=== PATIENT | female | born 1965 | race Caucasian/White ===

== ENCOUNTER 2016-11-27 18:58 | Observation (INO) | payer OTHER ==
[~2016-11-27] VITALS: Ht 167.6 cm; Wt 86.0 kg
[~2016-11-27 18:58] MED LIST: AMT50 PO; INSUINJ4 SQ
[2016-11-27] MEDS ORDERED: ONDANSETRON INJ 2 MG/ML 2 ML VIAL IV STA (19:09)
[2016-11-27] MEDS ORDERED: HYDROmorphone INJ 1 MG/ML SYR IV STA ×2 (19:09→20:44)
[2016-11-27 19:26] LABS: BASO % 0.4 %; BASO ABS # 0.02 K/uL (0-0.2); COMPLETE YES; EOS % 4.3 %; HEMATOCRIT 39.1 % (37-47); IG% 0.2 %; LYMPH % 28.7 %; MEAN CELL VOLUME 86.9 fL (80-100); MEAN CORPUSCULAR HEMOGLOBIN 30.7 pg (25-34); MEAN CORPUSCULAR HGB CONC 35.3 g/dl (32-36); MEAN PLATELET VOLUME 10.5 fL (7.4-10.4); MONO % 3.7 %; NEUT % 62.7 %; PLATELET COUNT 250 K/uL (130-400); WHITE BLOOD COUNT 4.87 K/uL (4.8-10.8)
[2016-11-27 19:35] LABS: ISTAT CREATININE 0.6 mg/dl (0.6-1.3); ISTAT HEMOGLOBIN 13.3 g/dl (12.0-16.0); ISTAT IONIZED CALCIUM 1.15 mmol/l (1.12-1.32)
[2016-11-27 19:37] LABS: INR 0.9 (0.9-1.1); PARTIAL THROMBOPLASTIN RATIO 0.9
[2016-11-27 19:51] LABS: BUN/CREATININE RATIO 12.6 (10-20); CALCIUM 8.5 mg/dl (8.5-10.1); CREATININE 0.91 mg/dl (0.60-1.20); POTASSIUM 4.1 mmol/L (3.5-5.1)
[2016-11-27 20:06] LABS: BETA-HYDROXYBUTYRATE 1.52 mg/dL (0.2-2.81)
[2016-11-27] MEDS ORDERED: OPTIRAY 320 IV PRN (20:15)
--- NOTE | 2016-11-27 20:20 | DIAGNOSTIC IMAGING REPORT ---
HEAD CT NONCONTRAST CT DOSE: HISTORY: head injury eval for bleed TECHNIQUE: Multiaxial CT images of the head were performed without the use of intravenous contrast. Automated exposure control was utilized for this study. Comparison: Head CT 06/10/2016. Findings: The paranasal sinuses and mastoid air cells are clear. The calvarium and skull base are intact. The ventricles and sulci are within normal limits. There is no mass, hematoma, midline shift, or acute infarct. Impression: No acute intracranial abnormality. Electronically signed by: Andry Reynolds M.D. 11/27/2016 8:19 PM Dictated Date/Time: 11/27/2016 8:14 PM
--- NOTE | 2016-11-27 20:28 | DIAGNOSTIC IMAGING REPORT ---
THORACIC AND LUMBAR SPINE CT CT DOSE: HISTORY: Back pain. Fall. TECHNIQUE: Multiaxial CT images of the thoracic and lumbar spine were performed and reformatted in the sagittal and coronal plane without the use of contrast. COMPARISON: Lumbar spine MRI 11/21/2010. FINDINGS: No fractures. Paraspinal soft tissues are unremarkable. Severe disc space narrowing at T7-T8. Small bone island at T5. Small calcified central disc protrusion at T7-T8. Posterior decompression fusion from L4 3 through L5 with pedicle screws and rods. The hardware appears intact. There is 3 mm of anterolisthesis of L4 on L5. IMPRESSION: No fractures within the thoracic or lumbar spine. Electronically signed by: Andry Reynolds M.D. 11/27/2016 8:27 PM Dictated Date/Time: 11/27/2016 8:19 PM
[2016-11-27] MEDS ORDERED: NovoLIN-R INSULIN PER UNIT CHARGE IV STA (20:30)
[2016-11-27] MEDS ORDERED: SODIUM CHLORIDE 0.9% 1000ML 1,000 ML IV STA (20:30)
--- NOTE | 2016-11-27 20:52 | DIAGNOSTIC IMAGING REPORT ---
CHEST ABDOMEN AND PELVIS CTA for AORTIC DISSECTION CT DOSE: 1996.05 mGy.cm HISTORY: Tearing chest pain and abdominal pain. TECHNIQUE: Multiaxial CT images of the chest abdomen and pelvis were performed both before and after the intravenous administration of contrast to evaluate the aorta. Maximal intensity projection images were also obtained. COMPARISON STUDY: Chest CTA 11/03/2009. Abdomen and pelvis CT 02/28/2010. FINDINGS: Normal caliber aorta with no evidence for dissection. Moderate calcified plaque within the abdominal aorta. The central pulmonary arteries are patent. The heart is normal in size. The thyroid gland is mildly enlarged. No mediastinal or hilar lymphadenopathy. No acute fractures. No pneumothorax. The lungs are essentially clear. The liver, spleen, gallbladder, left adrenal gland, and kidneys are unremarkable. A 1.2 cm right adrenal gland nodule has slightly increased in size. The bladder, uterus, and ovaries are within normal limits. No bowel wall thickening or obstruction. Normal appendix. L3-L5 posterior decompression and fusion. There are suggestion of pancreas divisum. IMPRESSION: 1. No evidence for an aortic dissection. 2. Additional findings as above. Electronically signed by: Andry Reynolds M.D. 11/27/2016 8:51 PM Dictated Date/Time: 11/27/2016 8:35 PM
--- NOTE | 2016-11-27 20:54 | DIAGNOSTIC IMAGING REPORT ---
LEFT KNEE 2 VIEWS HISTORY: left knee injury eval for fx COMPARISON: None. FINDINGS: There is no fracture or dislocation. Mild anterior and lateral soft tissue swelling. No radiopaque foreign bodies. No knee effusion. IMPRESSION: No fractures. Electronically signed by: Andry Reynolds M.D. 11/27/2016 8:53 PM Dictated Date/Time: 11/27/2016 8:51 PM
[2016-11-27] MEDS ORDERED: INSULIN GLARGINE SOLOSTAR 100 UNITS/ML 3 ML PEN SC STA (21:19)
--- NOTE | 2016-11-27 21:22 | EMERGENCY ROOM VISIT NOTE ---
History Report prepared by Milana: Lori Griffiths Under the Supervision of: Dr. Contreras Dee M.D. First contact with patient: 19:01 Chief Complaint: BACK PAIN Stated Complaint: BACK PAIN W/ SOB History of Present Illness The patient is a 51 year old female who presents to the Emergency Room with complaints of constant back pain beginning [employer]. The patient was bending over to get a cake out of the refrigerator. When she lifted it up she felt a pop in her thoracic spine. She immediately had pain in her back that wraps around to her chest. She describes her pain as "squeezing." The patient hit her head and her left knee on the fridge. She denies any LOC, but is currently complaining of a severe headache with associated photophobia. She states her headache feels like a migraine. All of her pain is worsened with movement. The patient has a long history of lumbar back pain. She has never had any issues with her thoracic spine before. She does state that recently whenever she bends over she gets pain in her back rating around her chest. The patient denies fevers, incontinence, recent illness, and any family history of an aortic dissection. She has a history of MS and states that she typically has numbness and weakness on her left side due to her MS. She denies any new numbness or weakness. The patient was brought to the ED by ambulance. Source of History: patient Onset: [employer] Position: back (upper) Symptom Intensity: severe Quality: other (squeezing) Timing: constant Modifying Factors (Worsening): movement Associated Symptoms: + headache, + chest pain, No LOC, No fevers Note: Pt notes left knee pain. Review of Systems See HPI for pertinent positives & negatives. A total of 10 systems reviewed and were otherwise negative. Past Medical & Surgical Medical Problems: (1) Agitated depression (2) Benign hypertension (3) Chronic back pain (4) Chronic low back pain (5) Diabetes (6) Diabetes mellitus type 2 (7) Diabetic neuropathy (8) Drug overdose - suicide (9) Dyslipidemia (10) Essential hypertension (11) Major depressive disorder (12) Multiple sclerosis (13) Non-toxic uninodular goiter (14) s/p arthroscopic surgery knee (15) s/p back surgery (16) Syncope (17) Vertigo (18) Weakness of limb Family History Diabetes mellitus Hypertension Social History Smoking Status: Never Smoker Alcohol Use: none Drug Use: none Marital Status: Housing Status: lives with family Occupation Status: disabled Current/Historical Medications Scheduled Amitriptyline Hcl (Elavil), 60 MG PO HS Gabapentin (Neurontin), 900 MG PO TID Insulin Glargine (Lantus Solostar Pen), 25 UNITS SQ BID Lisinopril (Lisinopril), 40 MG PO DAILY Scheduled PRN Lorazepam (Ativan), 1 MG PO Q6H PRN for ANXIETY Tramadol (Ultram), 1 TAB PO TID PRN for prn Allergies Coded Allergies: Cephalexin (Verified Allergy, Intermediate, HIVES; NO SOB OR ANAPHYLACTIC SYMPTOMS, 11/27/16) Nabumetone (Verified Allergy, Mild, HIVES, 11/27/16) Bupropion (Verified Allergy, Unknown, RASH FINGERS TINGLY AND NUMB, ) Prednisone (Verified Allergy, Unknown, elevated BP RASH GI SHUT DOWN, ) turns into syco women, crying, hearing things NSAIDs (Verified Adverse Reaction, Mild, GI UPSET,STOMACH CRAMPS,RASH, ELEVATED BP, 11/27/16) CAN TAKE ADVIL SOMETIMES Physical Exam Vital Signs Date Time Temp Pulse Resp B/P (MAP) Pulse Ox O2 Delivery O2 Flow Rate FiO2 11/27/16 20:53 69 18 150/81 100 Room Air 11/27/16 20:21 67 17 156/93 100 Room Air 11/27/16 19:21 83 11/27/16 19:15 96 Room Air 11/27/16 18:58 36.4 84 17 155/78 96 Room Air Physical Exam Constitutional: Vital signs reviewed. Eyes: Pupils are equal round reactive to light. Conjunctiva are noninjected. ENT: Pharynx is clear without erythema or exudate. Mucous membranes are moist. Neck supple without meningeal signs. Respiratory: Clear to auscultation bilaterally. Breath sounds are equal bilaterally. Cardiovascular: Regular rate and rhythm. No rubs or gallops. Symmetric pulses in the extremities. GI: Soft, nondistended and nontender. Bowel sounds are present. No pulsatile masses. Musculoskeletal: No peripheral edema. Diffuse tenderness to the left knee without ecchymosis. Integumentary: No cyanosis. Neurological: The patient is awake and alert. No cranial nerves II-12 are intact. Motor and sensation are intact in the right upper and lower extremities. Dysesthesia to the left arm and leg with 4/5 strength in both extremities. Psychiatric: Normal affect. Medical Decision & Procedures ER Provider Diagnostic Interpretation: Radiology results as stated below per my review and the radiologist's interpretation: THORACIC AND LUMBAR SPINE CT CT DOSE: HISTORY: Back pain. Fall. TECHNIQUE: Multiaxial CT images of the thoracic and lumbar spine were performed and reformatted in the sagittal and coronal plane without the use of contrast. COMPARISON: Lumbar spine MRI 11/21/2010. FINDINGS: No fractures. Paraspinal soft tissues are unremarkable. Severe disc space narrowing at T7-T8. Small bone island at T5. Small calcified central disc protrusion at T7-T8. Posterior decompression fusion from L4 3 through L5 with pedicle screws and rods. The hardware appears intact. There is 3 mm of anterolisthesis of L4 on L5. IMPRESSION: No fractures within the thoracic or lumbar spine. Electronically signed by: Andry Reynolds M.D. 11/27/2016 8:27 PM Dictated Date/Time: 11/27/2016 8:19 PM THORACIC AND LUMBAR SPINE CT CT DOSE: HISTORY: Back pain. Fall. TECHNIQUE: Multiaxial CT images of the thoracic and lumbar spine were performed and reformatted in the sagittal and coronal plane without the use of contrast. COMPARISON: Lumbar spine MRI 11/21/2010. FINDINGS: No fractures. Paraspinal soft tissues are unremarkable. Severe disc space narrowing at T7-T8. Small bone island at T5. Small calcified central disc protrusion at T7-T8. Posterior decompression fusion from L4 3 through L5 with pedicle screws and rods. The hardware appears intact. There is 3 mm of anterolisthesis of L4 on L5. IMPRESSION: No fractures within the thoracic or lumbar spine. Electronically signed by: Andry Reynolds M.D. 11/27/2016 8:27 PM Dictated Date/Time: 11/27/2016 8:[address]AST CT DOSE: HISTORY: head injury eval for bleed TECHNIQUE: Multiaxial CT images of the head were performed without the use of intravenous contrast. Automated exposure control was utilized for this study. Comparison: Head CT 06/10/2016. Findings: The paranasal sinuses and mastoid air cells are clear. The calvarium and skull base are intact. The ventricles and sulci are within normal limits. There is no mass, hematoma, midline shift, or acute infarct. Impression: No acute intracranial abnormality. Electronically signed by: Andry Reynolds M.D. 11/27/2016 8:19 PM Dictated Date/Time: 11/27/2016 8:14 PM CHEST ABDOMEN AND PELVIS CTA for AORTIC DISSECTION CT DOSE: 1996.05 mGy.cm HISTORY: Tearing chest pain and abdominal pain. TECHNIQUE: Multiaxial CT images of the chest abdomen and pelvis were performed both before and after the intravenous administration of contrast to evaluate the aorta. Maximal intensity projection images were also obtained. COMPARISON STUDY: Chest CTA 11/03/2009. Abdomen and pelvis CT 02/28/2010. FINDINGS: Normal caliber aorta with no evidence for dissection. Moderate calcified plaque within the abdominal aorta. The central pulmonary arteries are patent. The heart is normal in size. The thyroid gland is mildly enlarged. No mediastinal or hilar lymphadenopathy. No acute fractures. No pneumothorax. The lungs are essentially clear. The liver, spleen, gallbladder, left adrenal gland, and kidneys are unremarkable. A 1.2 cm right adrenal gland nodule has slightly increased in size. The bladder, uterus, and ovaries are within normal limits. No bowel wall thickening or obstruction. Normal appendix. L3-L5 posterior decompression and fusion. There are suggestion of pancreas divisum. IMPRESSION: 1. No evidence for an aortic dissection. 2. Additional findings as above. Electronically signed by: Andry Reynolds M.D. 11/27/2016 8:51 PM Dictated Date/Time: 11/27/2016 8:35 PM LEFT KNEE 2 VIEWS HISTORY: left knee injury eval for fx COMPARISON: None. FINDINGS: There is no fracture or dislocation. Mild anterior and lateral soft tissue swelling. No radiopaque foreign bodies. No knee effusion. IMPRESSION: No fractures. Electronically signed by: Andry Reynolds M.D. 11/27/2016 8:53 PM Dictated Date/Time: 11/27/2016 8:51 PM Laboratory Results 11/27/16 19:15 Red Blood Count 4.50, Mean Corpuscular Volume 86.9, Mean Corpuscular Hemoglobin 30.7, Mean Corpuscular Hemoglobin Concent 35.3, Mean Platelet Volume 10.5, Neutrophils (%) (Auto) 62.7, Lymphocytes (%) (Auto) 28.7, Monocytes (%) (Auto) 3.7, Eosinophils (%) (Auto) 4.3, Basophils (%) (Auto) 0.4, Neutrophils # (Auto) 3.05, Lymphocytes # (Auto) 1.40, Monocytes # (Auto) 0.18, Eosinophils # (Auto) 0.21, Basophils # (Auto) 0.02 11/27/16 19:15 Test 11/27/16 19:15 11/27/16 19:24 11/27/16 19:37 White Blood Count 4.87 K/uL (4.8-10.8) Red Blood Count 4.50 M/uL (4.2-5.4) Hemoglobin 13.8 g/dL (12.0-16.0) Hematocrit 39.1 % (37-47) Mean Corpuscular Volume 86.9 fL (80-100) Mean Corpuscular Hemoglobin 30.7 pg (25-34) Mean Corpuscular Hemoglobin Concent 35.3 g/dl (32-36) Platelet Count 250 K/uL (130-400) Mean Platelet Volume 10.5 fL (7.4-10.4) Neutrophils (%) (Auto) 62.7 % Lymphocytes (%) (Auto) 28.7 % Monocytes (%) (Auto) 3.7 % Eosinophils (%) (Auto) 4.3 % Basophils (%) (Auto) 0.4 % Neutrophils # (Auto) 3.05 K/uL (1.4-6.5) Lymphocytes # (Auto) 1.40 K/uL (1.2-3.4) Monocytes # (Auto) 0.18 K/uL (0.11-0.59) Eosinophils # (Auto) 0.21 K/uL (0-0.5) Basophils # (Auto) 0.02 K/uL (0-0.2) RDW Standard Deviation 40.8 fL (36.4-46.3) RDW Coefficient of Variation 12.7 % (11.5-14.5) Immature Granulocyte % (Auto) 0.2 % Immature Granulocyte # (Auto) 0.01 K/uL (0.00-0.02) Prothrombin Time 10.0 SECONDS (9.0-12.0) Prothromb Time International Ratio 0.9 (0.9-1.1) Activated Partial Thromboplast Time 23.6 SECONDS (21.0-31.0) Partial Thromboplastin Ratio 0.9 Est Creatinine Clear Calc Drug Dose 79.0 ml/min Estimated GFR () 83.5 Estimated GFR (Non- 72.0 BUN/Creatinine Ratio 12.6 (10-20) Calcium Level 8.5 mg/dl (8.5-10.1) Beta-Hydroxybutyric Acid 1.52 mg/dL (0.2-2.81) Bedside Hemoglobin 13.3 g/dl (12.0-16.0) Bedside Hematocrit 39 % (37-47) Bedside Sodium 136 mEq/L (135-144) Bedside Potassium 4.1 mEq/L (3.3-5.0) Bedside Chloride 99 mEq/L (101-112) Bedside Total CO2 24 mEq/l (24-31) Anion Gap 18.0 mmol/L (16-25) Bedside Blood Urea Nitrogen 11 mg/dl (7-18) Bedside Creatinine 0.6 mg/dl (0.6-1.3) Bedside Glucose (other) 403 mg/dl (70-99) Bedside Ionized Calcium ([place]) 1.15 mmol/l (1.12-1.32) Bedside Troponin I < 0.030 ng/ml (0-0.045) Medications Administered Medications (Trade) Dose Ordered Sig/Harrison Route Start Time Stop Time Status Last Admin Dose Admin Hydromorphone HCl (Dilaudid Inj) 1 mg NOW STAT IV 11/27/16 19:09 11/27/16 19:13 DC 11/27/16 19:44 1 MG Ondansetron HCl (Zofran Inj) 4 mg NOW STAT IV 11/27/16 19:09 11/27/16 19:13 DC 11/27/16 19:43 4 MG Sodium Chloride 1,000 ml @ 999 mls/hr Q1H1M STAT IV 11/27/16 20:30 11/27/16 21:30 11/27/16 20:43 999 MLS/HR Insulin Human Regular (novoLIN-R U-100 PER UNIT) 7 units NOW STAT IV 11/27/16 20:30 11/27/16 20:32 DC 11/27/16 20:45 7 UNITS Hydromorphone HCl (Dilaudid Inj) 0.5 mg NOW STAT IV 11/27/16 20:44 11/27/16 20:46 DC 11/27/16 20:52 0.5 MG ECG Indication: chest pain Rate (beats per minute): 80 Rhythm: normal sinus Findings: Q waves (lead 3), no acute ischemic change, no ectopy ED Course 1900: The patient was evaluated in room C6. A complete history and physical exam was performed. 1908: Zofran 4 mg IV, Dilaudid 1 mg IV 2029: Insulin Human Regular 7 units IV, NSS 1000 ml @ 999 mls/hr IV 2038: I reassessed the patient and she is still having chest pain and headache, although her chest pain has improved significantly. 2043: Dilaudid 0.5 mg IV 2057: I reassessed the patient at this time. She is still having some pain. I discussed the results and treatment plan with the patient. I answered all pertaining questions that she had. She expressed understanding and verbalized agreement. 2103: I spoke with Dr. Zaragoza. We discussed the patient's results and treatment plan. The patient will be evaluated by the [facility] for further management. Medical Decision This is a 51-year-old female who presents with chest pain, back pain and headache. Differential diagnosis includes aortic dissection, aortic aneurysm, thoracic intervertebral disc disease, acute coronary syndrome, pulmonary embolism. I did perform a limited focused review of portions of the patient's old chart on the electronic medical record. The patient has been here frequently for migraine headaches. Medication Reconciliation: I attest that I have personally reviewed the patient' s current medication list. Blood Pressure Screening: Patient was found to have an elevated blood pressure and was referred to their primary doctor for recheck and further treatment. I did evaluate the patient as noted above. IV access was established. The patient was placed on a continuous twist packer. I did order and personally review the patient's 12-lead EKG as described above. I did order and review the patient's blood work as noted in the electronic medical record. I did order a CT of the head, thoracic and lumbar spine, chest, abdomen and pelvis. I did review the images myself as well as the radiology report as described above. She does not have any evidence of aortic dissection. There is no intracranial hemorrhage. No fractures in her spine. She does have lumbar disc disease and T7 and T8. This may account for her chest pain. She was treated with Dilaudid and Zofran IV. She had persistent pain and was given Dilaudid 0.5 mg IV. I did reassess the patient. Her chest pain is significantly improved but she still has a persistent migraine. While her chest pain seems likely secondary to her intervertebral disc disease, I cannot completely rule out a cardiac cause. She does have a number of cardiac risk factors including strong family history, hypertension and diabetes. Her blood sugar is significantly elevated here. I did treat her with IV fluids and IV insulin. I did get an x-ray of her left knee which showed no acute fracture. After discussion with the patient she will be hospitalized for further care and management. I did discuss case with the [facility] case packer. [place] Drug Monitoring Program Search Results: patient reviewed within database, no issues identified Consults Time Called: 2100 Consulting Physician: Dr. Zaragoza Returned Call: [address] Zaragoza. We discussed the patient's results and treatment plan. The patient will be evaluated by the [facility] for further management. Impression Primary Impression: Left sided chest pain Additional Impressions: Intervertebral disc disease Intractable headache Intractable back pain Hyperglycemia Left knee injury Scribe Attestation The scribe's documentation has been prepared under my direct and personally reviewed by me in its entirety. I confirm that the note above accurately reflects all work, treatment, procedures, and medical decision making performed by me. Departure Information Dispostion Being Evaluated By Hospitalist Referrals Madi Jaimes D.O. (PCP) Patient Instructions My [facility] Problem Qualifiers Additional Impressions: Intractable headache Headache type: unspecified Headache chronicity pattern: unspecified pattern Qualified Codes: R51 - Headache Left knee injury Encounter type: initial encounter Qualified Codes: S89.92XA - Unspecified injury of left lower leg, initial encounter
[2016-11-27 21:28] LABS: ALKALINE PHOSPHATASE 150 U/L (45-117); ALT/SGPT 28 U/L (12-78); AST/SGOT 12 U/L (15-37)
[2016-11-27] MEDS ORDERED: GLUCOSE 40% GEL 15 GM TUBE PO PRN (22:00)
[2016-11-27] MEDS ORDERED: ACETAMINOPHEN 325 MG TAB PO PRN (22:00)
[2016-11-27] MEDS ORDERED: SUMATRIPTAN SUCCINATE 50 MG TAB PO PRN (22:00)
[2016-11-27] MEDS ORDERED: DEXTROSE 50% 50 ML SYR IV PRN (22:00)
[2016-11-27] MEDS ORDERED: GLUCAGON FOR INJ 1 MG VIAL SQ PRN (22:00)
[2016-11-27] MEDS ORDERED: ONDANSETRON INJ 2 MG/ML 2 ML VIAL IV PRN (22:00)
[2016-11-27] MEDS ORDERED: GLUCOSE 10 TABS/TUBE PO PRN (22:00)
[2016-11-27] MEDS ORDERED: PROMETHAZINE HCL INJ 12.5 MG in SODIUM CHLORIDE 0.9% 50ML 50 ML IV PRN (22:00)
[2016-11-27] MEDS ORDERED: LIDODERM (LIDOCAINE) PATCH 5% TD STA (22:01)
[2016-11-27] MEDS ORDERED: SUMATRIPTAN SUCCINATE 50 MG TAB PO STA (22:02)
[2016-11-27] MEDS ORDERED: GABAPENTIN 300 MG CAP PO STA (22:02)
[2016-11-27] MEDS ORDERED: INSULIN ASPART 100 UNITS/ML 3 ML PEN SC STA (22:03)
[2016-11-27] MEDS ORDERED: LORAZEPAM 1 MG TAB PO STA (22:04)
[2016-11-27 22:23] VITALS: BMI 30.6
[2016-11-27] MEDS ORDERED: IV FLUIDS COMPLETED PRN (22:45)
[2016-11-28] MEDS ORDERED: GADAVIST IV PRN (00:30)
--- NOTE | 2016-11-28 00:41 | HISTORY & PHYSICAL EXAMINATION ---
DATE OF ADMISSION: 11/27/2016 PCP : Dr. Jaimes CHIEF COMPLAINT: Back pain going to chest, L knee pain and headache. HISTORY OF PRESENT ILLNESS: History obtained from patient and records. Medical history is significant for chronic pain, migraine, mood and anxiety disorder, past tobacco abuse, HTN, DM2 insulin requiring, multiple sclerosis, history of narcotic abuse as per records. Recent confinement in hospital last April 2014 for acute on chronic headache likely myofascial pain syndrome. For the last 2 to 3 months patient has noted midback pain going to her chest and abdomen worsened w bending. PCP's attributed sx to musculoskeletal pain on last visit last month. Outpatient T spine Xrays contemplated. Hours ago, the patient was reaching for a cake in her refrigerator when she felt a pop on her midback, going under her lower ribs. pleuritic with some shortness of breath. No worsening or weakness in the lower extremities. Px subsequently hit her head on the refrigerator w/c caused her to fall down on her left knee. Px subsequently noted migraine attack w/ photophobia and worsening achy left knee pain. No LOC. Intractable pain at the Emergency Room. BSG 400s. Px given IV insulin in the ER. MEDICAL HISTORY: As above. SURGERIES: She has had back surgery in 2015 at [facility] and knee surgery. HOME MEDICATIONS: Include; Elavil, Neurontin, Lantus, Ativan, lisinopril and Ultram. ALLERGIES: TO CEPHALEXIN, PREDNISONE, BUPROPION, NSAIDS. FAMILY HISTORY: Heart disease. PERSONAL AND SOCIAL HISTORY: Past tobacco abuse. No chronic intake of alcoholic beverages. Disabled. REVIEW OF SYSTEMS: As per HPI, all other ROS negative. PHYSICAL EXAMINATION: VITAL SIGNS: Blood pressure was noted to be 150/80 pulse rate 60, RR 15 T 36.5 O2 sats 96 on room air. GENERAL: Noted to be uncomfortable, obese, in no respiratory distress, lying down on the stretcher with a towel over her face. SKIN: Normal color. HEENT: Wearing sunglasses. [place] palpebral conjunctivae. Dry mucosa. NECK: Short neck. LUNGS: Decreased breath sounds. subcostal tenderness BACK : Tenderness on the mid back ABDOMEN: Some distention. EXTREMITIES: L knee swellling and tenderness. NEUROLOGIC: No gross focality. gait and stance not assessed LABORATORIES: Hemoglobin was noted to be 13.8, hematocrit 39.1 white cell count 5.8 and platelets 250. Sodium 138, potassium 4.1, creatinine 1 glucose 380. Troponin is 0.03. CT head : no acute pathology. CT thoracic spine; no fractures of thoracic and lumbar spine. severe disc narrowing T7-T8 w/ small calcified disk protrusion. decompression L4 , L3 and L5 CTA; no dissection. Knee x-ray on the left : no fracture. no joint effusion, anterolat soft tissue swelling EKG as per my interpretation : rate of 80, normal sinus rhythm, inc RBBB, T-wave flattening in inferior leads, PRWP ASSESSMENT: 1. Acute on chronic midback pain now w subcostal radiation worsening of chronic thoracic radiculopathy sx after bending episode tonight 2. hx lumbar spine surgery ([facility]) 3. hx MS as per records, sx at baseline as per px 4. hypertension, slightly elevated 5. post-traumatic L knee pain 6. migraine flare up sp head trauma 7. DM2, insulin requiring suboptimal control as of recent HgA1c of 9.2 last May 2016 8. past tobacco abuse 9. narcotic abuse as per records PLAN: Observation. GMF analgesia. Judicious narcotic use. Lidoderm patch trial for midback pain MRI thoracic spine, Orthopedics consult RE radicular midback pain Imitrex trial for migraine. PT/OT eval. Basal insulin, ISS BG goal 140-180. Carb count coverage indicated for suboptimal blood sugar control. Patient due for HgA1c re-check. May benefit from diabetic education pending new results. DVT prophylaxis, Lovenox subQ. Full code. MTDD
[2016-11-28] MEDS ORDERED: SODIUM CHLORIDE 0.9% 1000ML 1,000 ML IV ONE (00:45)
[2016-11-28] MEDS: MoRPHine SULFATE 2 MG/ML CARP IV PRN ×2 (00:47→09:34)
[2016-11-28 06:00] LABS: HEMATOCRIT 39.2 % (37-47); MEAN CELL VOLUME 87.7 fL (80-100); MEAN CORPUSCULAR HEMOGLOBIN 29.8 pg (25-34); MEAN CORPUSCULAR HGB CONC 33.9 g/dl (32-36); MEAN PLATELET VOLUME 10.5 fL (7.4-10.4); PLATELET COUNT 243 K/uL (130-400); RED BLOOD COUNT 4.47 M/uL (4.2-5.4); WHITE BLOOD COUNT 5.95 K/uL (4.8-10.8)
[2016-11-28 06:34] LABS: ALB/GLOB RATIO 1.2 (0.9-2); BUN/CREATININE RATIO 13.2 (10-20); CALCIUM 8.7 mg/dl (8.5-10.1); CREATININE 0.72 mg/dl (0.60-1.20); POTASSIUM 3.3 mmol/L (3.5-5.1)
--- NOTE | 2016-11-28 06:40 | DIAGNOSTIC IMAGING REPORT ---
THORACIC SPINE MRI WITH AND WITHOUT CONTRAST HISTORY: Pain mid back pain , hx traum, hx ms TECHNIQUE: Multiplanar multisequence MRI of the thoracic spine was performed both before and after the intravenous administration of contrast. COMPARISON: None. FINDINGS: Alignment and curvature are intact. No fracture or subluxation. No significant central canal or neural foraminal narrowing. Signal characteristics are unremarkable. Moderate degenerative disc change throughout. IMPRESSION: Moderate degenerative disc change. No acute bony abnormality. No abnormal postcontrast enhancement. Electronically signed by: Mark Gonsalves M.D. 11/28/2016 6:39 AM Dictated Date/Time: 11/28/2016 6:36 AM
[2016-11-28 06:51] LABS: BASO % 0.3 %; BASO ABS # 0.02 K/uL (0-0.2); COMPLETE YES; IG% 0.2 %; LYMPH ABS # 2.08 K/uL (1.2-3.4); MONO % 5.4 %; NEUT % 55.1 %
[2016-11-28 07:20] VITALS: BP 145/84; PULSE 81; TEMP 36.6; O2SAT 96
[2016-11-28] MEDS: TRAMADOL HCL 50 MG TAB PO PRN ×4 (07:59→23:54)
[2016-11-28 08:18] LABS: ESTIMATED AVERAGE GLUCOSE 326 mg/dl; HA1C FLAG Normal (Normal)
[2016-11-28] MEDS: LIDODERM (LIDOCAINE) PATCH 5% TD SCH ×2 (09:00→09:29)
[2016-11-28] MEDS ORDERED: INSULIN GLARGINE SOLOSTAR 100 UNITS/ML 3 ML PEN SQ SCH (09:00)
[2016-11-28] MEDS: GABAPENTIN 300 MG CAP PO SCH ×3 (09:28→20:37)
[2016-11-28] MEDS: ENOXAPARIN 40 MG/0.4 ML SYR SQ SCH (09:28)
[2016-11-28] MEDS: LISINOPRIL 40 MG TAB PO SCH (09:28)
[2016-11-28] MEDS: INSULIN ASPART 100 UNITS/ML 3 ML PEN SC SCH ×4 (09:32→20:39)
[2016-11-28] MEDS: INSULIN GLARGINE SOLOSTAR 100 UNITS/ML 3 ML PEN SQ SCH ×2 (09:33→20:42)
[2016-11-28 09:37] VITALS: BP 133/78
[2016-11-28 13:07] VITALS: Ht 167.6 cm; Wt 86.0 kg
--- NOTE | 2016-11-28 13:57 | CONSULTATION REPORT ---
DATE OF CONSULTATION: 11/28/2016 HISTORY OF PRESENT ILLNESS: This is a very pleasant 51-year-old female who presented to the Emergency Room yesterday evening. She was in the refrigerator and leaning forward to get a Father's day cake out when she had an acute onset of thoracic pain radiating into her lower ribs bilaterally. She hit her left knee. She also reports to hit her head. We were asked to evaluate her in regards to her thoracic spine. She reports she has had this thoracic pain for the past several months. It waxes and wanes. Bending seems to exacerbate it. It does radiate to the anterior ribcage bilaterally just underneath her breasts. Upon examining her today it is improved. She has no radicular leg pain. No radicular upper extremity symptoms. She still has a migraine today, she does have a history of this as well. Denies bowel or bladder changes. She has had no treatment for this in the past. PAST MEDICAL HISTORY: Significant for depression, hypertension, diabetes, diabetic neuropathy, hyperlipidemia, hypertension, MS, goiter, syncope and vertigo. PAST SURGICAL HISTORY: Significant for knee arthroscopy and back surgery. SOCIAL HISTORY: She denies alcohol and tobacco use. She is , disability. MEDICATIONS: At home include Elavil, Neurontin, Lantus insulin, lisinopril, Ativan, tramadol. ALLERGIES: INCLUDE CEPHALEXIN, NABUMETONE, BUPROPION, PREDNISONE AND ANTI-INFLAMMATORIES. REVIEW OF SYSTEMS: Significant for thoracic pain, rib pain, left knee pain and a headache. PHYSICAL EXAMINATION: GENERAL: She is in a bed #352 bed #2. She has a Washcloth over her head. NEUROLOGIC: She is alert and oriented x3. Exam is limited to the musculoskeletal system. Her lower extremity is neurovascularly intact. Strength is intact bilaterally. No abrasions over the thoracolumbar spine. IMAGING DATA: I have a thoracic MRI dated 11/27/2016. This shows degenerative changes. There is no significant stenosis. There is no large disk herniations noted. No acute fractures noted. Also thoracic spine by CT dated 11/28/1999. Again, it shows significant disk space narrowing at T7-T8. Prior fusion L4-L5. ASSESSMENT: Acute on chronic thoracic pain. PLAN: At this point in time, she is greatly improved. Treatment at this point in time is at PT, pain control. I have discussed the merits of massage therapy upon discharge. There is no surgical intervention at this point in time recommended. If pain is uncontrolled still may consider pain management consult. Thank you for this consultation. MARK
[2016-11-28 15:05] VITALS: BP 138/80; PULSE 81; TEMP 36.8; O2SAT 96
[2016-11-28] MEDS: LORAZEPAM 1 MG TAB PO PRN (16:21)
[2016-11-28] MEDS ORDERED: ONDANSETRON INJ 2 MG/ML 2 ML VIAL IV ONE (17:00)
[2016-11-28] MEDS ORDERED: HYDROmorphone INJ 1 MG/ML SYR IV ONE (17:00)
[2016-11-28] MEDS ORDERED: AMITRIPTYLINE HCL 10 MG TAB PO SCH (21:00)
[2016-11-28 22:44] VITALS: BP 125/83; PULSE 88; TEMP 36.5; O2SAT 96
--- NOTE | 2016-11-29 01:00 | Progress Note ---
Medicine Progress Note Date & Time of Visit: Nov 28, 2016 at 16:50 . Subjective Back pain somewhat better. Experiencing severe migraine with nausea. No CP. No cough or SOB. No emesis or diarrhea. . Objective Last 8 Hrs Date Time Temp Pulse Resp B/P (MAP) Pulse Ox O2 Delivery O2 Flow Rate FiO2 11/28/16 16:30 Room Air 11/28/16 15:05 36.8 81 18 138/80 (99) 96 Room Air Physical Exam: General- appears to be uncomfortable Lungs- clear Heart- RRR Abdomen- + BS, soft, nontender Extremities- no pretibial edema or calf tenderness Neuro- alert . Laboratory Results: Last 24 Hours Test 11/28/16 05:30 11/28/16 08:16 11/28/16 12:05 11/28/16 17:02 White Blood Count 5.95 K/uL Red Blood Count 4.47 M/uL Hemoglobin 13.3 g/dL Hematocrit 39.2 % Mean Corpuscular Volume 87.7 fL Mean Corpuscular Hemoglobin 29.8 pg Mean Corpuscular Hemoglobin Concent 33.9 g/dl Platelet Count 243 K/uL Mean Platelet Volume 10.5 fL Neutrophils (%) (Auto) 55.1 % Lymphocytes (%) (Auto) 35.0 % Monocytes (%) (Auto) 5.4 % Eosinophils (%) (Auto) 4.0 % Basophils (%) (Auto) 0.3 % Neutrophils # (Auto) 3.28 K/uL Lymphocytes # (Auto) 2.08 K/uL Monocytes # (Auto) 0.32 K/uL Eosinophils # (Auto) 0.24 K/uL Basophils # (Auto) 0.02 K/uL RDW Standard Deviation 41.2 fL RDW Coefficient of Variation 12.8 % Immature Granulocyte % (Auto) 0.2 % Immature Granulocyte # (Auto) 0.01 K/uL Sodium Level 142 mmol/L Potassium Level 3.3 mmol/L Chloride Level 105 mmol/L Carbon Dioxide Level 28 mmol/L Anion Gap 9.0 mmol/L Blood Urea Nitrogen 10 mg/dl Creatinine 0.72 mg/dl Est Creatinine Clear Calc Drug Dose 99.8 ml/min Estimated GFR () 110.8 Estimated GFR (Non- 95.6 BUN/Creatinine Ratio 13.2 Random Glucose 169 mg/dl Calcium Level 8.7 mg/dl Total Bilirubin 0.4 mg/dl Aspartate Amino Transf (AST/SGOT) 11 U/L Alanine Aminotransferase (ALT/SGPT) 26 U/L Alkaline Phosphatase 131 U/L Total Protein 6.5 gm/dl Albumin 3.6 gm/dl Globulin 2.9 gm/dl Albumin/Globulin Ratio 1.2 Lipase 312 U/L Bedside Glucose 191 mg/dl 216 mg/dl 293 mg/dl Test 11/28/16 20:25 Bedside Glucose 177 mg/dl Assessment & Plan BACK PAIN MRI demonstrated degenerative changes. Seen by Ortho spine. Analgesics / PT recommended. MIGRAINE [place] Rx with hydromorphone + ondansetron. DM TYPE 2 Not well-controlled. Random glucose in ED 380. Hgb A1C = 13. Lantus + NovoLog per protocol. Will need ongoing outpatient eduction / support. VTE PROPHYLAXIS SQ enoxaparin. DISPOSITION Expected discharge to home. Family Medicine follow-up with Dr. Madi Jaimes. . Current Inpatient Medications: Current Inpatient Medications Medications (Trade) Dose Ordered Sig/Harrison Route Start Time Stop Time Status Last Admin Dose Admin Ioversol (Optiray 320) 116 ml UD PRN IV 11/27/16 20:15 12/01/16 20:14 Lidocaine (Lidoderm Patch 5%) 1 patch QAM TD 11/28/16 09:00 12/28/16 08:59 11/28/16 09:00 1 PATCH Miscellaneous (Remove Lidoderm Patch) 1 ea DAILY@21 N/A 11/28/16 21:00 12/28/16 20:59 11/28/16 20:36 1 EA Enoxaparin Sodium (Lovenox Inj) 40 mg Q24H SQ 11/28/16 09:00 12/28/16 08:59 11/28/16 09:28 40 MG Acetaminophen (Tylenol Tab) 650 mg Q4H PRN PO 11/27/16 22:00 12/27/16 21:59 11/28/16 05:28 650 MG Insulin Aspart (novoLOG ASPART) SLIDING SCALE If C... ACHS SC 11/28/16 07:00 12/28/16 06:59 11/28/16 18:05 8 UNITS Glucose (Glucose 40% Gel) 15-30 GRAMS 15 GRAMS... UD PRN PO 11/27/16 22:00 12/27/16 21:59 Glucose (Glucose Chew Tab) 4-8 Tablets 4 Tabl... UD PRN PO 11/27/16 22:00 12/27/16 21:59 Dextrose (Dextrose 50% 50ML Syringe) 25-50ML OF 50% DW IV FOR... UD PRN IV 11/27/16 22:00 12/27/16 21:59 Glucagon (Glucagon Inj) 1 mg UD PRN SQ 11/27/16 22:00 12/27/16 21:59 Amitriptyline HCl (Elavil Tab) 60 mg HS PO 11/28/16 21:00 12/28/16 20:59 11/28/16 20:38 60 MG Gabapentin (Neurontin Cap) 900 mg TID PO 11/28/16 09:00 12/28/16 08:59 11/28/16 20:37 900 MG Lisinopril (Zestril Tab) 40 mg DAILY PO 11/28/16 09:00 12/28/16 08:59 11/28/16 09:28 40 MG Lorazepam (Ativan Tab) 1 mg Q6H PRN PO 11/27/16 22:00 12/27/16 21:59 11/28/16 16:21 1 MG Tramadol HCl (Ultram Tab) 50 mg Q4H PRN PO 11/27/16 22:00 12/27/16 21:59 11/28/16 19:46 50 MG Sumatriptan Succinate (Imitrex Tab) 50 mg Q2H PRN PO 11/27/16 22:00 12/27/16 21:59 11/28/16 04:08 50 MG Ondansetron HCl (Zofran Inj) 4 mg Q6H PRN IV 11/27/16 22:00 12/27/16 21:59 Promethazine HCl 12.5 mg/Sodium Chloride 50.5 ml @ 204 mls/hr Q6H PRN IV 11/27/16 22:00 12/27/16 21:59 Morphine Sulfate (MoRPHine SULFATE INJ) 2 mg Q8H PRN IV 11/27/16 22:00 12/11/16 21:59 11/28/16 09:34 2 MG Miscellaneous (Iv Fluids Completed) 1 ea PRN PRN N/A 11/27/16 22:45 11/27/17 22:44 Gadobutrol (Gadavist) 8.5 mmol UD PRN IV 11/28/16 00:30 12/02/16 00:29 Insulin Glargine (Lantus Solostar Pen) 25 unit BID SQ 11/28/16 09:00 12/28/16 08:59 11/28/16 20:42 25 UNIT
[2016-11-29] MEDS: TRAMADOL HCL 50 MG TAB PO PRN (06:05)
[2016-11-29] MEDS: LORAZEPAM 1 MG TAB PO PRN ×2 (06:05→15:30)
[2016-11-29 06:48] LABS: CALCIUM 8.4 mg/dl (8.5-10.1); CREATININE 1.2 mg/dl (0.60-1.20)
[2016-11-29 07:59] VITALS: BP 120/82; PULSE 80; TEMP 36.4; O2SAT 97
[2016-11-29 08:05] VITALS: O2SAT 97
[2016-11-29] MEDS: ENOXAPARIN 40 MG/0.4 ML SYR SQ SCH (08:48)
[2016-11-29 08:49] VITALS: BP 95/59
[2016-11-29] MEDS: LISINOPRIL 40 MG TAB PO SCH (08:49)
[2016-11-29] MEDS: LIDODERM (LIDOCAINE) PATCH 5% TD SCH (08:50)
[2016-11-29] MEDS: GABAPENTIN 300 MG CAP PO SCH ×2 (08:50→13:44)
[2016-11-29] MEDS: INSULIN ASPART 100 UNITS/ML 3 ML PEN SC SCH ×3 (08:54→18:18)
[2016-11-29] MEDS: INSULIN GLARGINE SOLOSTAR 100 UNITS/ML 3 ML PEN SQ SCH (08:55)
[2016-11-29] MEDS ORDERED: HYDROmorphone INJ 1 MG/ML SYR IV ONE (10:00)
[2016-11-29] MEDS ORDERED: ONDANSETRON INJ 2 MG/ML 2 ML VIAL IV ONE (10:00)
[2016-11-29 10:09] VITALS: BP 114/74
[2016-11-29 15:16] VITALS: BP 128/84; PULSE 100; TEMP 36.8; O2SAT 97
[2016-11-29] MEDS ORDERED: BUTALBITAL/ACETAMIN/CAFFEINE TAB PO SCH (16:15)
--- NOTE | 2016-11-29 16:52 | Progress Note ---
Medicine Progress Note Date & Time of Visit: Nov 29, 2016 at 16:00 . Subjective Bad migraine this morning. Improved after receiving IV hydromorphone + ondansetron, but now recurring. Back pain improved. Would like to go home today. . Objective Last 8 Hrs Date Time Temp Pulse Resp B/P (MAP) Pulse Ox O2 Delivery O2 Flow Rate FiO2 11/29/16 15:16 36.8 100 16 128/84 (99) 97 Room Air 11/29/16 10:09 114/74 (87) 11/29/16 08:49 95/59 (71) Physical Exam: General- no acute distress Neck- supple Lungs- clear Heart- RRR Abdomen- + BS, soft, nontender Extremities- no pretibial edema or calf tenderness; left knee without significant effusion Neuro- alert . Laboratory Results: Last 24 Hours Test 11/28/16 17:02 11/28/16 20:25 11/29/16 05:30 11/29/16 07:58 Bedside Glucose 293 mg/dl 177 mg/dl 178 mg/dl Sodium Level 140 mmol/L Potassium Level 4.0 mmol/L Chloride Level 103 mmol/L Carbon Dioxide Level 27 mmol/L Anion Gap 10.0 mmol/L Blood Urea Nitrogen 18 mg/dl Creatinine 1.20 mg/dl Est Creatinine Clear Calc Drug Dose 59.9 ml/min Estimated GFR () 59.8 Estimated GFR (Non- 51.6 BUN/Creatinine Ratio 15.0 Random Glucose 205 mg/dl Calcium Level 8.4 mg/dl Test 11/29/16 11:56 Bedside Glucose 149 mg/dl Assessment & Plan BACK PAIN Developed severe back pain when reaching for something in refrigerator. MRI demonstrated degenerative changes. Seen by Ortho spine. Analgesics / PT recommended. Lidocaine patch seems to be helping- will give Rx. MIGRAINE [place] Rx'd with hydromorphone + ondansetron. Continue usual regimen at home. DM TYPE 2 Not well-controlled. Random glucose in ED 380. Hgb A1C = 13. Lantus + NovoLog per protocol. FBS today = 178. Will need ongoing outpatient eduction / support. VTE PROPHYLAXIS SQ enoxaparin. DISPOSITION Discharge to home. Family Medicine follow-up with Dr. Madi Jaimes. . Consultants: Ortho Spine . Procedures: CT head CT thoracic + lumbar spine CTA chest MRI thoracic spine PT OT . Current Inpatient Medications: Current Inpatient Medications Medications (Trade) Dose Ordered Sig/Harrison Route Start Time Stop Time Status Last Admin Dose Admin Ioversol (Optiray 320) 116 ml UD PRN IV 11/27/16 20:15 12/01/16 20:14 Lidocaine (Lidoderm Patch 5%) 1 patch QAM TD 11/28/16 09:00 12/28/16 08:59 11/29/16 08:50 1 PATCH Miscellaneous (Remove Lidoderm Patch) 1 ea DAILY@21 N/A 11/28/16 21:00 12/28/16 20:59 11/28/16 20:36 1 EA Enoxaparin Sodium (Lovenox Inj) 40 mg Q24H SQ 11/28/16 09:00 12/28/16 08:59 11/28/16 09:28 40 MG Acetaminophen (Tylenol Tab) 650 mg Q4H PRN PO 11/27/16 22:00 12/27/16 21:59 11/28/16 05:28 650 MG Insulin Aspart (novoLOG ASPART) SLIDING SCALE If C... ACHS SC 11/28/16 07:00 12/28/16 06:59 11/29/16 13:02 2 UNITS Glucose (Glucose 40% Gel) 15-30 GRAMS 15 GRAMS... UD PRN PO 11/27/16 22:00 12/27/16 21:59 Glucose (Glucose Chew Tab) 4-8 Tablets 4 Tabl... UD PRN PO 11/27/16 22:00 12/27/16 21:59 Dextrose (Dextrose 50% 50ML Syringe) 25-50ML OF 50% DW IV FOR... UD PRN IV 11/27/16 22:00 12/27/16 21:59 Glucagon (Glucagon Inj) 1 mg UD PRN SQ 11/27/16 22:00 12/27/16 21:59 Amitriptyline HCl (Elavil Tab) 60 mg HS PO 11/28/16 21:00 12/28/16 20:59 11/28/16 20:38 60 MG Gabapentin (Neurontin Cap) 900 mg TID PO 11/28/16 09:00 12/28/16 08:59 11/29/16 13:44 900 MG Lisinopril (Zestril Tab) 40 mg DAILY PO 11/28/16 09:00 12/28/16 08:59 11/28/16 09:28 40 MG Lorazepam (Ativan Tab) 1 mg Q6H PRN PO 11/27/16 22:00 12/27/16 21:59 11/29/16 15:30 1 MG Tramadol HCl (Ultram Tab) 50 mg Q4H PRN PO 11/27/16 22:00 12/27/16 21:59 11/29/16 06:05 50 MG Sumatriptan Succinate (Imitrex Tab) 50 mg Q2H PRN PO 11/27/16 22:00 12/27/16 21:59 11/28/16 04:08 50 MG Ondansetron HCl (Zofran Inj) 4 mg Q6H PRN IV 11/27/16 22:00 12/27/16 21:59 Promethazine HCl 12.5 mg/Sodium Chloride 50.5 ml @ 204 mls/hr Q6H PRN IV 11/27/16 22:00 12/27/16 21:59 Morphine Sulfate (MoRPHine SULFATE INJ) 2 mg Q8H PRN IV 11/27/16 22:00 12/11/16 21:59 11/28/16 09:34 2 MG Miscellaneous (Iv Fluids Completed) 1 ea PRN PRN N/A 11/27/16 22:45 11/27/17 22:44 Gadobutrol (Gadavist) 8.5 mmol UD PRN IV 11/28/16 00:30 12/02/16 00:29 Insulin Glargine (Lantus Solostar Pen) 25 unit BID SQ 11/28/16 09:00 12/28/16 08:59 11/29/16 08:55 25 UNIT Acetaminophen/ Butalbital/ Caffeine (Fioricet Tab) 2 tab TODAY@1615 PO 11/29/16 16:15 11/29/16 17:00 11/29/16 16:26 2 TAB
[2016-11-29] MEDS ORDERED: NF656 TOP (17:07)
--- NOTE | 2016-11-29 17:12 | Discharge Instructions ---
Discharge Instructions Date of Service Nov 29, 2016. Admission Reason for Admission: Intractable Back Pain Discharge Discharge Diagnosis / Problem: Intractable Back Pain Discharge Goals Goal(s): Decrease discomfort Activity Recommendations Activity Limitations: as noted below Lifting Limitations: no more than 10 pounds Exercise/Sports Limitations: as tolerated Shower/Bathe: no limitations Driving or Machine Use: no limitations . Instructions / Follow-Up Instructions / Follow-Up APPOINTMENTS: FAMILY MEDICINE 12/05/2016 1:20 PM Madi Jaimes, INSTRUCTIONS: MRI of back showed wear and tear (degenerative changes), but no fractures. Your blood sugars were very high when you came to the hospital. Your hemoglobin A1C was high as well. Increase Lantus to 30 units twice a day. Be careful with your diet. Ask Dr. Jaimes to refer you to Diabetes Education Team. Seek medical attention if you have: * temperature above 101 * chest pain or trouble breathing * weakness in your legs * problems with bladder or bowel function * any unanswered questions or concerns Call 911 if symptoms are severe. Call if you have any questions or problems. You can reach a [facility] hospitalist on duty at [facility] 24 hours a day by calling [phone]. Please take good care of yourself. Justin Bush . Current Hospital Diet Patient's current hospital diet: Diabetes Type 2 Diet Discharge Diet Recommended Diet: AHA Diet (Heart Healthy), Diabetes Type 2 Diet Pending Studies Studies pending at discharge: no Laboratory Results Hemoglobin A1c Test 11/27/16 19:15 Range/Units Estimated Average Glucose 326 mg/dl Hemoglobin A1c 13.0 H 4.5-5.6 % Medical Emergencies . Who to Call and When: Medical Emergencies: If at any time you feel your situation is an emergency, please call 911 immediately. . Non-Emergent Contact Non-Emergency issues call your: Primary Care Provider, Hospital Doctor . . "Provider Documentation" section prepared by Justin Bush. . VTE Core Measure Inpt VTE Proph given/why not?: Enoxaparin (Lovenox)SQ
--- NOTE | 2016-11-29 17:20 | Discharge Summary ---
Discharge Summary Date of Service Nov 29, 2016. Discharge Summary Admission Date: Nov 27, 2016 at 21:47 Discharge Date: Nov 29, 2016 Discharge Disposition: Home Principal Diagnosis: severe back pain, no acute fracture or dislocation . Secondary Diagnoses/Problems: Other Acute Medical Problems: poorly controlled DM type 2 - Hgb A1C 13 Chronic and Resolved Medical Problems: (2) Benign hypertension Status: Chronic (3) Chronic low back pain Status: Chronic (4) Diabetes mellitus type 2 Permanent Comment: poorly controlled Status: Chronic (5) Diabetic neuropathy Status: Chronic (6) Drug overdose - suicide Status: Resolved (7) Dyslipidemia Status: Chronic (8) Essential hypertension Status: Resolved (9) Intervertebral disc disease Status: Chronic (10) Major depressive disorder Status: Chronic (11) Migraine Status: Chronic (12) Multiple sclerosis Status: Chronic (13) Non-toxic uninodular goiter Status: Chronic (14) Postlaminectomy syndrome of lumbar region Status: Chronic (16) Vertigo Status: Chronic Surgical Problems: (1) H/O arthroscopic knee surgery Status: Chronic (2) History of back surgery Permanent Comment: 03/20/1996 Other back surgery, Mark Omer MD, [facility] [place] Status: Chronic . Procedures: CT head CT thoracic + lumbar spine CTA chest MRI thoracic spine PT OT . Consultations: Ortho Spine . Pending Studies/Follow-Up: Please make referral to Diabetes Education Team re: Hgb A1C = 13. . Medication Reconciliation New Medications: Lidocaine (Lidoderm Patch 5%) 1 Ea Tdsy 1 PATCH TOP DAILY PRN for Pain, #30 PATCH 1 Refill apply to painful area in the morning remove at bedtime Continued Medications: Amitriptyline HCl (Amitriptyline HCl) 25 Mg Tab 25 MG PO HS Atorvastatin (Atorvastatin Calcium) 20 Mg Tab 20 MG PO DAILY, TAB Gabapentin (Neurontin) 300 Mg Cap 900 MG PO TID take 300 + 600 mg pills together for total of 900 mg 3 times a day Gabapentin (Gabapentin) 600 Mg Tab 600 MG PO TID, TAB take 300 + 600 mg pills together for total of 900 mg 3 times a day Hydrochlorothiazide (Hydrochlorothiazide) 25 Mg Tab 25 MG PO DAILY, TAB Ibuprofen (Ibuprofen) 600 Mg Tab 600 MG PO BID PRN for Pain take with food Insulin Glargine (Lantus Solostar Pen) 100 Unit/ Inj 30 UNITS SQ BID new dose 11/29/16 Lisinopril (Lisinopril) 40 Mg Tab 40 MG PO DAILY Lorazepam (Ativan) 1 Mg Tab 1 MG PO Q6H PRN for ANXIETY Tramadol (Ultram) 50 Mg Tab 50 MG PO Q6 PRN for Pain Admission Information HPI (per Admitting provider): History obtained from patient and records. Medical history is significant for chronic pain, migraine, mood and anxiety disorder, past tobacco abuse, HTN, DM2 insulin requiring, multiple sclerosis, history of narcotic abuse as per records. Recent confinement in hospital last April 2014 for acute on chronic headache likely myofascial pain syndrome. For the last 2 to 3 months patient has noted midback pain going to her chest and abdomen worsened w bending. PCP's attributed sx to musculoskeletal pain on last visit last month. Outpatient T spine Xrays contemplated. Hours ago, the patient was reaching for a cake in her refrigerator when she felt a pop on her midback, going under her lower ribs. pleuritic with some shortness of breath. No worsening or weakness in the lower extremities. Px subsequently hit her head on the refrigerator w/c caused her to fall down on her left knee. Px subsequently noted migraine attack w/ photophobia and worsening achy left knee pain. No LOC. Intractable pain at the Emergency Room. BSG 400s. Px given IV insulin in the ER. . Physical Exam (per Admitting): VITAL SIGNS: Blood pressure was noted to be 150/80 pulse rate 60, RR 15 T 36.5 O2 sats 96 on room air. GENERAL: Noted to be uncomfortable, obese, in no respiratory distress, lying down on the stretcher with a towel over her face. SKIN: Normal color. HEENT: Wearing sunglasses. [place] palpebral conjunctivae. Dry mucosa. NECK: Short neck. LUNGS: Decreased breath sounds. subcostal tenderness BACK : Tenderness on the mid back ABDOMEN: Some distention. EXTREMITIES: L knee swellling and tenderness. NEUROLOGIC: No gross focality. gait and stance not assessed . Hospital Course BACK PAIN Developed severe back pain when reaching for something in refrigerator. MRI demonstrated degenerative changes. Seen by Ortho spine. Analgesics / PT recommended. Lidocaine patch seems to be helping- will give Rx. MIGRAINE [place] Rx'd with hydromorphone + ondansetron. Continue usual regimen at home. DM TYPE 2 Not well-controlled. Random glucose in ED 380. Hgb A1C = 13. Lantus + NovoLog per protocol. FBS today = 178. Will need ongoing outpatient eduction / support. VTE PROPHYLAXIS SQ enoxaparin. DISPOSITION Discharge to home. Family Medicine follow-up with Dr. Madi Jaimes. . Discharge Instructions Date of Service Nov 29, 2016. Admission Reason for Admission: Intractable Back Pain Discharge Discharge Diagnosis / Problem: Intractable Back Pain Discharge Goals Goal(s): Decrease discomfort Activity Recommendations Activity Limitations: as noted below Lifting Limitations: no more than 10 pounds Exercise/Sports Limitations: as tolerated Shower/Bathe: no limitations Driving or Machine Use: no limitations . Instructions / Follow-Up Instructions / Follow-Up APPOINTMENTS: FAMILY MEDICINE 12/05/2016 1:20 PM Madi Jaimes, INSTRUCTIONS: MRI of back showed wear and tear (degenerative changes), but no fractures. Your blood sugars were very high when you came to the hospital. Your hemoglobin A1C was high as well. Increase Lantus to 30 units twice a day. Be careful with your diet. Ask Dr. Jaimes to refer you to Diabetes Education Team. Seek medical attention if you have: * temperature above 101 * chest pain or trouble breathing * weakness in your legs * problems with bladder or bowel function * any unanswered questions or concerns Call 911 if symptoms are severe. Call if you have any questions or problems. You can reach a [facility] hospitalist on duty at [facility] 24 hours a day by calling [phone]. Please take good care of yourself. Justin Bush . Current Hospital Diet Patient's current hospital diet: Diabetes Type 2 Diet Discharge Diet Recommended Diet: AHA Diet (Heart Healthy), Diabetes Type 2 Diet Pending Studies Studies pending at discharge: no Laboratory Results Hemoglobin A1c Test 11/27/16 19:15 Range/Units Estimated Average Glucose 326 mg/dl Hemoglobin A1c 13.0 H 4.5-5.6 % Medical Emergencies . Who to Call and When: Medical Emergencies: If at any time you feel your situation is an emergency, please call 911 immediately. . Non-Emergent Contact Non-Emergency issues call your: Primary Care Provider, Hospital Doctor . . "Provider Documentation" section prepared by Justin Bush. . VTE Core Measure Inpt VTE Proph given/why not?: Enoxaparin (Lovenox)SQ . Additional Copies To Madi Jaimes D.O.
[2016-11-29 17:50] VITALS: BP 128/84; PULSE 100; TEMP 36.8; O2SAT 97
[2017-02-24] MEDS ORDERED: TRAM-10 PO (13:12)
== END 2016-11-29 19:30 | disposition home or self-care (01) ==
LOC: EDBD 18:58 → C.EDC 19:00 → C.MSW 21:47 → EDBEDREQSVC 22:17 → ENRESERV 22:27
PROVIDERS: ADMIT Internal Medicine; ATTEND Hospitalist
DX: R51 Headache (principal); S89.92XA Unspecified injury of left lower leg, initial encounter; I10 Essential (primary) hypertension; E11.40 Type 2 diabetes mellitus with diabetic neuropathy, unspecified; E78.5 Hyperlipidemia, unspecified; G35 Multiple sclerosis; G89.29 Other chronic pain; M54.5 Low back pain; F32.9 Major depressive disorder, single episode, unspecified; E04.9 Nontoxic goiter, unspecified; Z79.4 Long term (current) use of insulin; Z79.899 Other long term (current) drug therapy; M96.1 Postlaminectomy syndrome, not elsewhere classified; W19.XXXA Unspecified fall, initial encounter

== ENCOUNTER → 2016-12-20 | Outpatient (CLI) | payer OTHER ==
[~2016-12-20] MED LIST changes: +AMT25 PO; -AMT50 PO; +ATV/1 PO; +GABA-113 PO; +HYDR25TA5 PO; +INSDGIPEN SC; +LPT/20 PO; +LSN40 PO; +MTR/600 PO; +NF656 TOP; +NRN600 PO; +TRAM-10 PO
== END | disposition home or self-care (01) ==
LOC: C.RDSM 14:51
PROVIDERS: ATTEND Physical Medicine & Rehabilitation Sports Medicine
DX: R07.9 Chest pain, unspecified (principal)

== ENCOUNTER 2017-01-08 22:17 | Emergency (ER) | payer OTHER ==
[~2017-01-08] VITALS: Ht 168.9 cm; Wt 87.0 kg
[~2017-01-08 22:17] MED LIST changes: -AMT25 PO; -ATV/1 PO; -GABA-113 PO; -HYDR25TA5 PO; -INSDGIPEN SC; -LPT/20 PO; -LSN40 PO; -MTR/600 PO; -NRN600 PO; -TRAM-10 PO
[2017-01-08 22:32] VITALS: TEMP 36.7; Ht 168.9 cm; Wt 87.0 kg
[2017-01-08] MEDS ORDERED: SODIUM CHLORIDE 0.9% 500ML 500 ML IV STA (22:53)
[2017-01-08] MEDS ORDERED: METOCLOPRAMIDE HCL INJ 5 MG/ML 2 ML VIAL IV STA (22:53)
[2017-01-08] MEDS ORDERED: DiphenhydrAMINE HCL 50 MG/ML VIAL IV STA (22:53)
[2017-01-08] MEDS ORDERED: SODIUM CHLORIDE 0.9% 1000ML 1,000 ML IV SCH (22:53)
[2017-01-08 23:21] LABS: BASO % 0.3 %; BASO ABS # 0.02 K/uL (0-0.2); COMPLETE YES; EOS % 2.4 %; HEMATOCRIT 39.8 % (37-47); IG% 0.3 %; LYMPH % 22.4 %; LYMPH ABS # 1.61 K/uL (1.2-3.4); MEAN CELL VOLUME 86.9 fL (80-100); MEAN CORPUSCULAR HEMOGLOBIN 30.1 pg (25-34); MEAN CORPUSCULAR HGB CONC 34.7 g/dl (32-36); MEAN PLATELET VOLUME 9.8 fL (7.4-10.4); MONO % 3.1 %; NEUT % 71.5 %; PLATELET COUNT 252 K/uL (130-400); RED BLOOD COUNT 4.58 M/uL (4.2-5.4); WHITE BLOOD COUNT 7.18 K/uL (4.8-10.8)
[2017-01-08 23:25] VITALS: O2SAT 98
[2017-01-08 23:30] LABS: INR 0.9 (0.9-1.1); PARTIAL THROMBOPLASTIN RATIO 0.9
[2017-01-08 23:39] LABS: BLOOD UREA NITROGEN 18 mg/dl (7-18); BUN/CREATININE RATIO 18.9 (10-20); CALCIUM 9.1 mg/dl (8.5-10.1); CARBON DIOXIDE 28 mmol/L (21-32); CHLORIDE 102 mmol/L (98-107); CREATININE 0.95 mg/dl (0.60-1.20); GLUCOSE 304 mg/dl (70-99); MAGNESIUM 1.9 mg/dl (1.8-2.4); POTASSIUM 4.1 mmol/L (3.5-5.1); SODIUM 137 mmol/L (136-145)
[2017-01-08 23:42] LABS: C-REACTIVE PROTEIN < 0.29 mg/dl (0-0.29)
[2017-01-08 23:44] LABS: URINE APPEARANCE CLOUDY (CLEAR); URINE BILIRUBIN NEG (NEG); URINE COLOR YELLOW; URINE EPITHELIAL CELL AUTO >30 /lpf (0-5); URINE NITRITE NEG (NEG); URINE SPECIFIC GRAVITY 1.033 (1.000-1.030); UROBILINOGEN NEG (NEG); ZZUR CULT IF INDIC CLEAN CATCH YES
[2017-01-08 23:49] LABS: BETA-HYDROXYBUTYRATE 0.87 mg/dL (0.2-2.81); THYROID STIMULATING HORMONE 0.122 uIu/ml (0.300-4.500)
[2017-01-09 00:03] LABS: MANUAL MICROSCOPIC REQUIRED? NO; REVIEW REQ? NO
[2017-01-09] MEDS ORDERED: DiphenhydrAMINE HCL 50 MG/ML VIAL IV STA (01:08)
[2017-01-09] MEDS ORDERED: GADAVIST IV PRN (03:30)
[2017-01-09] MEDS ORDERED: KETOROLAC TROMETHAMINE 30 MG/ML VIAL IV STA (03:42)
--- NOTE | 2017-01-09 04:09 | EMERGENCY ROOM VISIT NOTE ---
History First contact with patient: 22:38 Chief Complaint: NEURO SYMPTOMS Stated Complaint: HEAD PRESSURE, LOSS OF FEELING ON RT SIDE, VISION Nursing Triage Summary: Patient c/o of right sided numbness for over a week. Pressure to the top of the head x 4 days. Blurred vision x 2 days. History of Present Illness The patient is a 51 year old female who presents to the Emergency Room with complaints of headache for the past 4 days in the frontal region prescription as throbbing, ranging in severity 8 out of 10 with diplopia and right-sided tingling for the past 10 days. Patient has MS. No recent flares. Most of her lesions are located in her cervical region. Patient also has a history of migraines. She follows with Dr. Feng. Patient also complains of difficulty with ambulation. Patient denies fall, chest pain, dyspnea, abdominal pain, vomiting, diarrhea, fever, cold symptoms. Patient states she has difficulty grasping objects. Review of Systems See HPI for pertinent positives & negatives. A total of 10 systems reviewed and were otherwise negative. Past Medical/Surgical History Medical Problems: (1) Benign hypertension (2) Chronic low back pain (3) Diabetes mellitus type 2 (4) Diabetic neuropathy (5) Drug overdose - suicide (6) Dyslipidemia (7) Essential hypertension (8) Intervertebral disc disease (9) Major depressive disorder (10) Migraine (11) Multiple sclerosis (12) Non-toxic uninodular goiter (13) Postlaminectomy syndrome of lumbar region (14) Syncope (15) Vertigo (16) Weakness of limb Surgical Problems: (1) H/O arthroscopic knee surgery (2) History of back surgery Family History Asthma BROTHER Diabetes mellitus FH: CAD (coronary artery disease) MOTHER FH: CHF (congestive heart failure) MOTHER FH: Crohn's disease SISTER Hypertension Social History Smoking Status: Former Smoker Alcohol Use: none Drug Use: none Marital Status: Housing Status: lives with family Occupation Status: disabled Current/Historical Medications Scheduled Amitriptyline HCl (Amitriptyline HCl), 25 MG PO HS Atorvastatin (Atorvastatin Calcium), 20 MG PO DAILY Gabapentin (Neurontin), 300 MG PO TID Gabapentin (Gabapentin), 600 MG PO TID Hydrochlorothiazide (Hydrochlorothiazide), 25 MG PO DAILY Insulin Glargine (Lantus Solostar), 30 UNITS SC BID Lisinopril (Lisinopril), 40 MG PO DAILY Scheduled PRN Ibuprofen (Ibuprofen), 600 MG PO BID PRN for Pain Lidocaine (Lidoderm Patch 5%), 1 PATCH TOP DAILY PRN for Pain Lorazepam (Ativan), 1 MG PO Q6H PRN for ANXIETY Tramadol (Ultram), 50 MG PO Q6 PRN for Pain Physical Exam Vital Signs Date Time Temp Pulse Resp B/P (MAP) Pulse Ox O2 Delivery O2 Flow Rate FiO2 01/09/17 03:26 76 18 141/83 96 Room Air 01/09/17 01:08 58 18 154/92 97 Room Air 01/08/17 23:26 79 01/08/17 23:25 98 Room Air 01/08/17 23:22 72 18 120/79 98 Room Air 01/08/17 22:32 36.7 85 18 143/86 96 Room Air Physical Exam VITALS: Vitals are noted on the nurse's note and reviewed by myself. Vital signs stable. GENERAL:pleasant female, in no acute distress, nondiaphoretic, well-developed well-nourished. SKIN: The skin was without rashes, erythema, edema, or bruising. There is no tenting of the skin. Capillary reflex less than 2 seconds. HEAD: Normocephalic atraumatic. EARS: External auditory canals clear, tympanic membranes pearly ruth without erythema or effusion bilaterally. EYES: Pupils equal round and reactive to light and accommodation. Conjunctivae without injection, sclerae without icterus. Extraocular movements intact. NOSE: Patent, turbinates without inflammation or discharge. No sinus tenderness. MOUTH: Mucous membranes moist. Pharynx without erythema or exudate. Uvula midline. Airway patent. Tongue does not deviate. NECK: Supple without nuchal rigidity. No lymphadenopathy. No thyromegaly. Cervical spine is nontender. No JVD. HEART: Regular rate and rhythm LUNGS: Clear to auscultation bilaterally without wheezes, rales or rhonchi. No dullness to percussion. No retractions or accessory muscle use. ABDOMEN: Positive bowel sounds x 4. Normal tympanic percussion. Soft, nontender, without masses or organomegaly. Rosado sign negative. No guarding or rebound tenderness. MUSCULOSKELETAL: No muscle atrophy, erythema, or edema noted. NEURO: Patient was alert and oriented to person place and time. Subjective decrease sensation to the right upper lower extremities. All other areas with Normal sensation to light and sharp touch. No focal neurological deficits. Cranial nerves II through XII grossly intact. No pronator drift. Cerebellar exam intact. Medical Decision & Procedures Laboratory Results 01/08/17 23:12 Red Blood Count 4.58, Mean Corpuscular Volume 86.9, Mean Corpuscular Hemoglobin 30.1, Mean Corpuscular Hemoglobin Concent 34.7, Mean Platelet Volume 9.8, Neutrophils (%) (Auto) 71.5, Lymphocytes (%) (Auto) 22.4, Monocytes (%) (Auto) 3.1, Eosinophils (%) (Auto) 2.4, Basophils (%) (Auto) 0.3, Neutrophils # (Auto) 5.14, Lymphocytes # (Auto) 1.61, Monocytes # (Auto) 0.22, Eosinophils # (Auto) 0.17, Basophils # (Auto) 0.02 01/08/17 23:12 Test 01/08/17 23:12 01/08/17 23:25 White Blood Count 7.18 K/uL (4.8-10.8) Red Blood Count 4.58 M/uL (4.2-5.4) Hemoglobin 13.8 g/dL (12.0-16.0) Hematocrit 39.8 % (37-47) Mean Corpuscular Volume 86.9 fL (80-100) Mean Corpuscular Hemoglobin 30.1 pg (25-34) Mean Corpuscular Hemoglobin Concent 34.7 g/dl (32-36) Platelet Count 252 K/uL (130-400) Mean Platelet Volume 9.8 fL (7.4-10.4) Neutrophils (%) (Auto) 71.5 % Lymphocytes (%) (Auto) 22.4 % Monocytes (%) (Auto) 3.1 % Eosinophils (%) (Auto) 2.4 % Basophils (%) (Auto) 0.3 % Neutrophils # (Auto) 5.14 K/uL (1.4-6.5) Lymphocytes # (Auto) 1.61 K/uL (1.2-3.4) Monocytes # (Auto) 0.22 K/uL (0.11-0.59) Eosinophils # (Auto) 0.17 K/uL (0-0.5) Basophils # (Auto) 0.02 K/uL (0-0.2) RDW Standard Deviation 41.9 fL (36.4-46.3) RDW Coefficient of Variation 13.3 % (11.5-14.5) Immature Granulocyte % (Auto) 0.3 % Immature Granulocyte # (Auto) 0.02 K/uL (0.00-0.02) Erythrocyte Sedimentation Rate 4 mm/hr (0-21) Prothrombin Time 10.0 SECONDS (9.0-12.0) Prothromb Time International Ratio 0.9 (0.9-1.1) Activated Partial Thromboplast Time 23.2 SECONDS (21.0-31.0) Partial Thromboplastin Ratio 0.9 Anion Gap 7.0 mmol/L (3-11) Est Creatinine Clear Calc Drug Dose 76.8 ml/min Estimated GFR () 79.3 Estimated GFR (Non- 68.4 BUN/Creatinine Ratio 18.9 (10-20) Calcium Level 9.1 mg/dl (8.5-10.1) Magnesium Level 1.9 mg/dl (1.8-2.4) Total Creatine Kinase 58 U/L (26-192) Creatine Kinase MB < 0.5 ng/ml (0.5-3.6) Creatine Kinase MB Ratio (0-3.0) Troponin I < 0.015 ng/ml (0-0.045) C-Reactive Protein < 0.29 mg/dl (0-0.29) Beta-Hydroxybutyric Acid 0.87 mg/dL (0.2-2.81) Thyroid Stimulating Hormone (TSH) 0.122 uIu/ml (0.300-4.500) Urine Color YELLOW Urine Appearance CLOUDY (CLEAR) Urine pH 5.0 (4.5-7.5) Urine Specific [place] 1.033 (1.000-1.030) Urine Protein NEG (NEG) Urine Glucose (UA) 3+ (NEG) Urine Ketones TRACE (NEG) Urine Occult Blood NEG (NEG) Urine Nitrite NEG (NEG) Urine Bilirubin NEG (NEG) Urine Urobilinogen NEG (NEG) Urine Leukocyte Esterase TRACE (NEG) Urine WBC (Auto) 10-30 /hpf (0-5) Urine RBC (Auto) 0-4 /hpf (0-4) Urine Hyaline Casts (Auto) 5-10 /lpf (0-5) Urine Epithelial Cells (Auto) >30 /lpf (0-5) Urine Bacteria (Auto) NEG (NEG) Medications Administered Medications (Trade) Dose Ordered Sig/Harrison Route Start Time Stop Time Status Last Admin Dose Admin Sodium Chloride 1,000 ml @ 50 mls/hr Q20H IV 01/08/17 22:53 02/07/17 22:52 01/08/17 22:53 50 MLS/HR Sodium Chloride 500 ml @ 999 mls/hr Q31M STAT IV 01/08/17 22:53 01/08/17 23:23 DC 01/08/17 23:19 999 MLS/HR Metoclopramide HCl (Reglan Inj) 10 mg NOW STAT IV 01/08/17 22:53 01/08/17 22:56 DC 01/08/17 23:19 10 MG Diphenhydramine HCl (Benadryl Inj) 25 mg NOW STAT IV 01/08/17 22:53 01/08/17 22:56 DC 01/08/17 23:18 25 MG Diphenhydramine HCl (Benadryl Inj) 25 mg NOW STAT IV 01/09/17 01:08 01/09/17 01:09 DC 01/09/17 01:12 25 MG Ketorolac Tromethamine (Toradol Inj) 30 mg NOW STAT IV 01/09/17 03:42 01/09/17 03:44 DC 01/09/17 03:48 30 MG ED Course Prior records/ancillary studies reviewed. Triage Nursing notes reviewed. The patient's history was concerning for headache with tingling and ataxia. Differential diagnosis: Etiologies such as MS exacerbation, electrolyte abnormality, neurologic, toxologic, migraine headache, meningitis, sinusitis, CO exposure, ICH, SAH, infection, tumor, headache, sinus thrombosis, arterial dissection, as well as others were entertained. Physical examination findings: As above. Non-focal. ER treatment provided: Benadryl, Reglan, IV fluids On reassessment the patient felt better. Diagnostics interpreted by me: ECG: Normal sinus, normal intervals, no acute ST-T wave changes. Impression normal sinus rhythm interpreted by myself The labs revealed low TSH. Stable H&H. Negative troponin Hyperglycemia without DKA Imaging studies: CT brain with no intracranial bleed per radiology MRI C SPINE : Multiple T2 hyperintense lesions are seen throughout the cervical and upper thoracic spinal cord, consistent with demyelinating lesions. No definite enhancement is seen. Mild to moderate degenerative changes of the spine. No acute fracture or subluxation. Radiologist: Eagle Martinez M.D. MRI HEAD : Comparison: CT brain 01/08/17 No acute infarct, hemorrhage, or mass effect. Multiple periventricular and deep white matter FLAIR hyperintense lesions, some involving the left temporal lobe, are consistent with demyelinating lesions. No enhancement or diffusion restriction is seen within the lesions. Lesion seen in the centrum semiovale shows T1 hypointensity, consistent with burned out lesions. Radiologist: Eagle Martinez M.D. Consultation: A consultation was placed with the neurologist, Dr Feng. The case was discussed and diagnostics were reviewed. He recommends MRIs and then discharge and he will follow up with the patient this week. He does not recommend steroids at the patient is allergic. This appears to be consistent with MS exacerbation with migraine. Patient was neurovascularly and neurologically intact. She was well-appearing. She is able to ambulate. She is advised to follow-up with neurology this week and call for an appointment this morning or here in the ER sooner for inability to walk, severe pain, fevers, worsening signs or symptoms or as needed. Patient is allergic to prednisone. Neurology does not recommend giving this. By the evaluation outlined above emergent etiologies such as meningitis, sinusitis, CO exposure, ICH, SAH, infection, temporal arteritis, tumor, sinus thrombosis, arterial dissection, as well as others were deemed relatively unlikely. The pt informed about the findings as listed above. All questions were answered and pleased with the treatment. Return instructions were outlined and the patient was discharged in stable condition. Referral: The patient was referred back to their neurologist for follow-up in 2 to 3 days for a recheck of the current condition. Case reviewed with my attending. Medical Decision As above Medication Reconcilliation Current Medication List: was personally reviewed by me Blood Pressure Screening Patient's blood pressure: Normal blood pressure Impression Primary Impression: Multiple sclerosis Additional Impression: Migraine Departure Information Dispostion Home / Self-Care Condition GOOD Referrals Madi Jaimes, D.O. (PCP) Patient Instructions My [facility] Additional Instructions DO NOT drive, drink alcohol, operate machinery, or perform dangerous activities today. You were given medications in the ER that can affect your ability to safely function or operate a vehicle. Rest today in a quiet, peaceful, dark environment and get a full 8-10 hrs of sleep tonight. Avoid loud noises, smoke/smoking, alcohol, bright lights, stress, or physical exertion today to minimize the chance the headache may return. Continue current medications. Acetaminophen(Tylenol) may be used for fever or pain. Use 1000mg every six hours as needed. Avoid using more than 3000mg in a 24 hour period. Return to the ER for passing out, worsening headache, vision problems, neck stiffness/pain, fevers, vomiting, worsening of your condition, or as needed. Follow up with your neurologist in 2-3 days for a recheck of your current condition. Call this morning for a follow-up appointment. They're expecting your phone call. Problem Qualifiers Additional Impression: Migraine Migraine type: without aura Status migrainosus presence: without status migrainosus Intractability: not intractable Qualified Codes: G43.009 - Migraine without aura, not intractable, without status migrainosus
[2017-01-09 04:23] VITALS: BP 156/72; PULSE 78; O2SAT 100
--- NOTE | 2017-01-09 04:29 | EMERGENCY ROOM VISIT NOTE ---
ED Visit Note First contact with patient: 22:38 Patient seen at bedside with PA. Agree with eval; Reviewed eval; Neuro consulted ; To follow up with neuro this week Problem List Medical Problems: (1) Benign hypertension Status: Chronic (2) Chronic low back pain Status: Chronic (3) Diabetes mellitus type 2 Status: Chronic (4) Diabetic neuropathy Status: Chronic (5) Drug overdose - suicide Status: Resolved (6) Dyslipidemia Status: Chronic (7) Essential hypertension Status: Resolved (8) Intervertebral disc disease Status: Chronic (9) Major depressive disorder Status: Chronic (10) Migraine Status: Chronic (11) Multiple sclerosis Status: Chronic (12) Non-toxic uninodular goiter Status: Chronic (13) Postlaminectomy syndrome of lumbar region Status: Chronic (14) Syncope Status: Resolved (15) Vertigo Status: Chronic (16) Weakness of limb Status: Resolved Surgical Problems: (1) H/O arthroscopic knee surgery Status: Chronic (2) History of back surgery Permanent Comment: 03/20/1996 Other [place] surgery, [place], [facility] [place]: Chronic Current/Historical Medications Scheduled Amitriptyline HCl (Amitriptyline HCl), 25 MG PO HS Atorvastatin (Atorvastatin Calcium), 20 MG PO DAILY Gabapentin (Neurontin), 300 MG PO TID Gabapentin (Gabapentin), 600 MG PO TID Hydrochlorothiazide (Hydrochlorothiazide), 25 MG PO DAILY Insulin Glargine (Lantus Solostar), 30 UNITS SC BID Lisinopril (Lisinopril), 40 MG PO DAILY Scheduled PRN Ibuprofen (Ibuprofen), 600 MG PO BID PRN for Pain Lidocaine (Lidoderm Patch 5%), 1 PATCH TOP DAILY PRN for Pain Lorazepam (Ativan), 1 MG PO Q6H PRN for ANXIETY Tramadol (Ultram), 50 MG PO Q6 PRN for Pain Allergies Coded Allergies: Cephalexin (Verified Allergy, Intermediate, HIVES; NO SOB OR ANAPHYLACTIC SYMPTOMS, 01/08/17) Nabumetone (Verified Allergy, Mild, HIVES, 01/08/17) Bupropion (Verified Allergy, Unknown, RASH FINGERS TINGLY AND NUMB, ) Prednisone (Verified Allergy, Unknown, elevated BP RASH GI SHUT DOWN, ) turns into syco women, crying, hearing things NSAIDs (Verified Adverse Reaction, Mild, GI UPSET,STOMACH CRAMPS,RASH, ELEVATED BP, 01/08/17) CAN TAKE ADVIL SOMETIMES Vital Signs Date Time Temp Pulse Resp B/P (MAP) Pulse Ox O2 Delivery O2 Flow Rate FiO2 01/09/17 04:23 78 18 156/72 100 Room Air 01/09/17 03:26 76 18 141/83 96 Room Air 01/09/17 01:08 58 18 154/92 97 Room Air 01/08/17 23:26 79 01/08/17 23:25 98 Room Air 01/08/17 23:22 72 18 120/79 98 Room Air 01/08/17 22:32 36.7 85 18 143/86 96 Room Air Laboratory Results 01/08/17 23:12 Red Blood Count 4.58, Mean Corpuscular Volume 86.9, Mean Corpuscular Hemoglobin 30.1, Mean Corpuscular Hemoglobin Concent 34.7, Mean Platelet Volume 9.8, Neutrophils (%) (Auto) 71.5, Lymphocytes (%) (Auto) 22.4, Monocytes (%) (Auto) 3.1, Eosinophils (%) (Auto) 2.4, Basophils (%) (Auto) 0.3, Neutrophils # (Auto) 5.14, Lymphocytes # (Auto) 1.61, Monocytes # (Auto) 0.22, Eosinophils # (Auto) 0.17, Basophils # (Auto) 0.02 01/08/17 23:12 Test 01/08/17 23:12 01/08/17 23:25 White Blood Count 7.18 K/uL (4.8-10.8) Red Blood Count 4.58 M/uL (4.2-5.4) Hemoglobin 13.8 g/dL (12.0-16.0) Hematocrit 39.8 % (37-47) Mean Corpuscular Volume 86.9 fL (80-100) Mean Corpuscular Hemoglobin 30.1 pg (25-34) Mean Corpuscular Hemoglobin Concent 34.7 g/dl (32-36) Platelet Count 252 K/uL (130-400) Mean Platelet Volume 9.8 fL (7.4-10.4) Neutrophils (%) (Auto) 71.5 % Lymphocytes (%) (Auto) 22.4 % Monocytes (%) (Auto) 3.1 % Eosinophils (%) (Auto) 2.4 % Basophils (%) (Auto) 0.3 % Neutrophils # (Auto) 5.14 K/uL (1.4-6.5) Lymphocytes # (Auto) 1.61 K/uL (1.2-3.4) Monocytes # (Auto) 0.22 K/uL (0.11-0.59) Eosinophils # (Auto) 0.17 K/uL (0-0.5) Basophils # (Auto) 0.02 K/uL (0-0.2) RDW Standard Deviation 41.9 fL (36.4-46.3) RDW Coefficient of Variation 13.3 % (11.5-14.5) Immature Granulocyte % (Auto) 0.3 % Immature Granulocyte # (Auto) 0.02 K/uL (0.00-0.02) Erythrocyte Sedimentation Rate 4 mm/hr (0-21) Prothrombin Time 10.0 SECONDS (9.0-12.0) Prothromb Time International Ratio 0.9 (0.9-1.1) Activated Partial Thromboplast Time 23.2 SECONDS (21.0-31.0) Partial Thromboplastin Ratio 0.9 Anion Gap 7.0 mmol/L (3-11) Est Creatinine Clear Calc Drug Dose 76.8 ml/min Estimated GFR () 79.3 Estimated GFR (Non- 68.4 BUN/Creatinine Ratio 18.9 (10-20) Calcium Level 9.1 mg/dl (8.5-10.1) Magnesium Level 1.9 mg/dl (1.8-2.4) Total Creatine Kinase 58 U/L (26-192) Creatine Kinase MB < 0.5 ng/ml (0.5-3.6) Creatine Kinase MB Ratio (0-3.0) Troponin I < 0.015 ng/ml (0-0.045) C-Reactive Protein < 0.29 mg/dl (0-0.29) Beta-Hydroxybutyric Acid 0.87 mg/dL (0.2-2.81) Thyroid Stimulating Hormone (TSH) 0.122 uIu/ml (0.300-4.500) Urine Color YELLOW Urine Appearance CLOUDY (CLEAR) Urine pH 5.0 (4.5-7.5) Urine Specific [place] 1.033 (1.000-1.030) Urine Protein NEG (NEG) Urine Glucose (UA) 3+ (NEG) Urine Ketones TRACE (NEG) Urine Occult Blood NEG (NEG) Urine Nitrite NEG (NEG) Urine Bilirubin NEG (NEG) Urine Urobilinogen NEG (NEG) Urine Leukocyte Esterase TRACE (NEG) Urine WBC (Auto) 10-30 /hpf (0-5) Urine RBC (Auto) 0-4 /hpf (0-4) Urine Hyaline Casts (Auto) 5-10 /lpf (0-5) Urine Epithelial Cells (Auto) >30 /lpf (0-5) Urine Bacteria (Auto) NEG (NEG) Medications Administered Medications (Trade) Dose Ordered Sig/Harrison Route Start Time Stop Time Status Last Admin Dose Admin Sodium Chloride 1,000 ml @ 50 mls/hr Q20H IV 01/08/17 22:53 02/07/17 22:52 01/08/17 22:53 50 MLS/HR Sodium Chloride 500 ml @ 999 mls/hr Q31M STAT IV 01/08/17 22:53 01/08/17 23:23 DC 01/08/17 23:19 999 MLS/HR Metoclopramide HCl (Reglan Inj) 10 mg NOW STAT IV 01/08/17 22:53 01/08/17 22:56 DC 01/08/17 23:19 10 MG Diphenhydramine HCl (Benadryl Inj) 25 mg NOW STAT IV 01/08/17 22:53 01/08/17 22:56 DC 01/08/17 23:18 25 MG Diphenhydramine HCl (Benadryl Inj) 25 mg NOW STAT IV 01/09/17 01:08 01/09/17 01:09 DC 01/09/17 01:12 25 MG Ketorolac Tromethamine (Toradol Inj) 30 mg NOW STAT IV 01/09/17 03:42 01/09/17 03:44 DC 01/09/17 03:48 30 MG Departure Information Impression Primary Impression: Multiple sclerosis Additional Impression: Migraine Dispostion Home / Self-Care Condition GOOD Referrals Madi Jaimes, D.O. (PCP) Forms WORK / SCHOOL INSTRUCTIONS, HOME CARE DOCUMENTATION FORM, IMPORTANT VISIT INFORMATION Patient Instructions Headaches Migraine and Tension, Multiple Sclerosis Dc, [facility] Additional Instructions DO NOT drive, drink alcohol, operate machinery, or perform dangerous activities today. You were given medications in the ER that can affect your ability to safely function or operate a vehicle. Rest today in a quiet, peaceful, dark environment and get a full 8-10 hrs of sleep tonight. Avoid loud noises, smoke/smoking, alcohol, bright lights, stress, or physical exertion today to minimize the chance the headache may return. Continue current medications. Acetaminophen(Tylenol) may be used for fever or pain. Use 1000mg every six hours as needed. Avoid using more than 3000mg in a 24 hour period. Return to the ER for passing out, worsening headache, vision problems, neck stiffness/pain, fevers, vomiting, worsening of your condition, or as needed. Follow up with your neurologist in 2-3 days for a recheck of your current condition. Call this morning for a follow-up appointment. They're expecting your phone call. Problem Qualifiers
--- NOTE | 2017-01-09 06:43 | DIAGNOSTIC IMAGING REPORT ---
CT HEAD WITHOUT CONTRAST (CT) CLINICAL HISTORY: Headache, right-sided numbness, blurred vision. COMPARISON STUDY: 11/27/2016 TECHNIQUE: Axial CT of the brain is performed from the vertex to the skull base. IV contrast was not administered for this examination. A dose lowering technique was utilized adhering to the principles of ALARA. CT DOSE: 537.48 mGy.cm FINDINGS: No intra or extra-axial mass lesions are visualized. There is no CT evidence of acute cortical infarction. There is no evidence of midline shift. There is no acute hemorrhage. No calvarial fractures are visualized. There are patchy white matter hypodensities likely on a small vessel basis. There is no evidence of pathologic ventricular dilatation. There is no evidence of acute sinusitis IMPRESSION: No acute intracranial findings Electronically signed by: Ismael Nice M.D. 01/09/2017 6:41 AM Dictated Date/Time: 01/09/2017 6:40 AM
--- NOTE | 2017-01-09 06:57 | DIAGNOSTIC IMAGING REPORT ---
MRI CERVICAL SPINE COMBO CLINICAL HISTORY: Multiple sclerosis, right-sided numbness. TECHNIQUE: Sagittal and axial T1, T2 and STIR images were obtained. Images were acquired before and after the administration of 8.5 cc of intravenous Gadavist COMPARISON STUDY: 04/23/2014 There are no suspicious areas of marrow replacement. There are extensive foci of increased T2 signal within the cervical cord most pronounced at the C2 through the C5 levels. These appear slightly progressive when compared the prior April 2014 study. There are areas of involvement of both the central cord as well as the left and right hemicords. No pathologic enhancement is demonstrated. C2-3: There is no evidence of disc bulge or focal herniation. There is no spinal or foraminal stenosis. There are foci of increased T2 signal within the posterior central cord and left hemicord. C3-4: There is a mild circumferential disc bulge. There is no significant spinal stenosis. There is mild bilateral foraminal narrowing. There are foci of increased signal within the posterior central cord and right hemicord C4-5: There is a mild circumferential disc bulge. There is mild bilateral foraminal narrowing. There are foci of increased signal within the posterior central cord and right hemicord C5-6 :There is a mild circumferential disc bulge. There is mild bilateral foraminal narrowing. Only subtle areas of increased signal present within the cord at this level C6-7: There is no evidence of significant disc bulge or focal herniation. There is no evidence of spinal or foraminal stenosis. Only faint areas of increased signal are present within the cord. C7-T1: There is no evidence of disc bulge or focal herniation. There is no evidence of spinal or foraminal stenosis. Only faint areas of increased signal are present within the cord. IMPRESSION: 1. Extensive foci of increased T2 signal within the cervical spinal cord, consistent with the clinical history of multiple sclerosis. The findings appear slightly progressive when compared the prior 2013 study. There is no pathologic enhancement 2. Mild multilevel degenerative changes. Electronically signed by: Ismael Nice M.D. 01/09/2017 6:56 AM Dictated Date/Time: 01/09/2017 6:47 AM
--- NOTE | 2017-01-09 07:23 | DIAGNOSTIC IMAGING REPORT ---
Brain MRI WITH AND WITHOUT CONTRAST HISTORY: MS, ? flair, tingling, diplopia. Right-sided numbness. TECHNIQUE: Multiplanar multisequence MRI of the brain was performed both before and after the intravenous administration of contrast. COMPARISON STUDY: Head CT 01/08/2017. Brain MRI 04/23/2014. FINDINGS: There is no mass, hematoma, midline shift, acute infarct. The major vascular flow-voids at the skull base are well-maintained. The ventricles are normal in size. The orbits are unremarkable. Paranasal sinuses and mastoid air cells are clear. There appears to be a 5 mm focus of enhancement within the left external capsule best seen on axial postcontrast sequences image 14 of 24. Slight progression of the patchy periventricular white matter T2 hyperintensity seen within the supratentorial brain. This includes a new T2 hyperintense focus within the left occipital lobe T2 hyperintense focus within the left side of the cervicomedullary junction remains unchanged. These are consistent with areas of demyelination. There is also a new small focus of T2 hyperintensity within the left midbrain/brittany on image 9 of 24 of the axial T2 sequences. IMPRESSION: 1. Slight progression of the white matter plaques within the brain as described above consistent with the patient's history of multiple sclerosis. 2. Possible faint focus of enhancement within the left external capsule. This is suggestive of an area of active demyelination. Electronically signed by: Andry Reynolds M.D. 01/09/2017 7:21 AM Dictated Date/Time: 01/09/2017 7:11 AM
--- NOTE | 2017-01-11 16:45 | Pharmacy Progress Note ---
ED Pharmacist Culture FollowUp Date of Service: Jan 11, 2017. Patient with alpha Strep not Enterococcus isolated in urine. Isolation does not necessarily indicate infection. No urinary symptoms were mentioned. WBC wnl, afebrile. UA abnormal but also with >30 epithelial cells. This likely represents a contaminant. No intervention required by ED staff at this time. Case discussed w Dr. Mancia.
[2017-02-24] MEDS ORDERED: TRAM-10 PO (13:12)
== END 2017-01-09 04:56 | disposition home or self-care (01) ==
LOC: C.EDB 22:18 → C.EDA 01-09 04:56
DX: G35 Multiple sclerosis (principal); G43.009 Migraine without aura, not intractable, without status migrainosus; I10 Essential (primary) hypertension; M54.5 Low back pain; G89.29 Other chronic pain; E11.9 Type 2 diabetes mellitus without complications; E78.5 Hyperlipidemia, unspecified; F32.9 Major depressive disorder, single episode, unspecified; M96.1 Postlaminectomy syndrome, not elsewhere classified; Z83.6 Family history of other diseases of the respiratory system; Z83.3 Family history of diabetes mellitus; Z82.49 Family history of ischemic heart disease and other diseases of the circulatory system; Z83.79 Family history of other diseases of the digestive system; Z87.891 Personal history of nicotine dependence; Z79.4 Long term (current) use of insulin; Z79.899 Other long term (current) drug therapy

== ENCOUNTER 2017-02-24 16:46 | Emergency (ER) | payer OTHER ==
[~2017-02-24] VITALS: Ht 168.9 cm; Wt 88.0 kg
[~2017-02-24 16:46] MED LIST changes: -INSUINJ4 SQ; +TRAM-10 PO
[2017-02-24 16:50] VITALS: TEMP 36.4; Ht 168.9 cm; Wt 88.0 kg
[2017-02-24] MEDS ORDERED: SODIUM CHLORIDE 0.9% 500ML 500 ML IV STA (16:58)
[2017-02-24] MEDS ORDERED: DiphenhydrAMINE HCL 50 MG/ML VIAL IV STA (16:58)
[2017-02-24] MEDS ORDERED: KETOROLAC TROMETHAMINE 30 MG/ML VIAL IV STA (16:58)
[2017-02-24] MEDS ORDERED: PROCHLORPERAZINE 5 MG/ML 2 ML VIAL IV STA (16:58)
[2017-02-24] MEDS ORDERED: HYDROmorphone INJ 1 MG/ML SYR IV STA (16:58)
[2017-02-24] MEDS ORDERED: LPT/20 PO (16:59)
[2017-02-24] MEDS ORDERED: AMT25 PO (16:59)
[2017-02-24] MEDS ORDERED: MTR/600 PO (16:59)
[2017-02-24] MEDS ORDERED: NRN600 PO (16:59)
[2017-02-24] MEDS ORDERED: HYDR25TA5 PO (16:59)
[2017-02-24] MEDS ORDERED: CYCLOBENZAPRINE HCL 5 MG TAB PO ONE (17:15)
[2017-02-24] MEDS ORDERED: NF656 TOP (17:25)
--- NOTE | 2017-02-24 17:46 | EMERGENCY ROOM VISIT NOTE ---
History Report prepared by Milana: Jean-Pierre Ferro Under the Supervision of: Dr. Perico Mancia D.O. First contact with patient: 16:55 Chief Complaint: HEADACHE Stated Complaint: MIGRAINE History of Present Illness The patient is a 52 year old female who presents to the Emergency Room with complaints of a constant migraine starting three days ago. The patient states that it is affecting her whole head, though her pain is mostly around her eyes. She additionally states that she has some neck pain, and feels like it is tensed up. She notes that she is nauseous. Source of History: patient Onset: three days ago Position: head Quality: other (migraine) Timing: constant Associated Symptoms: + nausea Review of Systems See HPI for pertinent positives & negatives. A total of 10 systems reviewed and were otherwise negative. Past Medical & Surgical Medical Problems: (1) Benign hypertension (2) Chronic low back pain (3) Diabetes mellitus type 2 (4) Diabetic neuropathy (5) Drug overdose - suicide (6) Dyslipidemia (7) Essential hypertension (8) Intervertebral disc disease (9) Major depressive disorder (10) Migraine (11) Multiple sclerosis (12) Non-toxic uninodular goiter (13) Postlaminectomy syndrome of lumbar region (14) Syncope (15) Vertigo (16) Weakness of limb Surgical Problems: (1) H/O arthroscopic knee surgery (2) History of back surgery Family History Asthma BROTHER Diabetes mellitus FH: CAD (coronary artery disease) MOTHER FH: CHF (congestive heart failure) MOTHER FH: Crohn's disease SISTER Hypertension Social History Smoking Status: Former Smoker Alcohol Use: none Drug Use: none Marital Status: Housing Status: lives with family Occupation Status: disabled Current/Historical Medications Scheduled Amitriptyline HCl (Amitriptyline HCl), 25 MG PO HS Atorvastatin (Atorvastatin Calcium), 20 MG PO DAILY Gabapentin (Neurontin), 300 MG PO TID Gabapentin (Gabapentin), 600 MG PO TID Hydrochlorothiazide (Hydrochlorothiazide), 25 MG PO DAILY Insulin Glargine (Lantus Solostar), 30 UNITS SC BID Lisinopril (Lisinopril), 40 MG PO DAILY Scheduled PRN Ibuprofen (Ibuprofen), 600 MG PO BID PRN for Pain Lidocaine (Lidoderm Patch 5%), 1 PATCH TOP ONAMOFFPM PRN for Pain Lorazepam (Ativan), 1 MG PO Q6H PRN for Anxiety Tramadol (Ultram), 50 MG PO Q6H PRN for Pain Allergies Coded Allergies: Cephalexin (Verified Allergy, Intermediate, HIVES; NO SOB OR ANAPHYLACTIC SYMPTOMS, 01/08/17) Nabumetone (Verified Allergy, Mild, HIVES, 01/08/17) Bupropion (Verified Allergy, Unknown, RASH FINGERS TINGLY AND NUMB, ) Prednisone (Verified Allergy, Unknown, elevated BP RASH GI SHUT DOWN, ) turns into syco women, crying, hearing things NSAIDs (Verified Adverse Reaction, Mild, GI UPSET,STOMACH CRAMPS,RASH, ELEVATED BP, 01/08/17) CAN TAKE ADVIL SOMETIMES Physical Exam Vital Signs Date Time Temp Pulse Resp B/P (MAP) Pulse Ox O2 Delivery O2 Flow Rate FiO2 02/24/17 16:50 36.4 79 20 147/79 98 Room Air Physical Exam CONSTITUTIONAL/VITAL SIGNS: Reviewed / noted above. GENERAL: Non-toxic in appearance. INTEGUMENTARY: Warm, dry, and [place]. HEAD: Normocephalic. EYES: without scleral icterus or trauma. ENT/OROPHARYNX: clear and moist. LYMPHADENOPATHY/NECK: Is supple without lymphadenopathy or meningismus. RESPIRATORY: Lungs clear and equal. CARDIOVASCULAR: Regular rate and rhythm. GI/ABDOMEN: Soft and nontender. No organomegaly or pulsatile mass. No rebound or guarding. Normal bowel sounds. EXTREMITIES: Warm and well perfused. BACK: No CVA tenderness. NEUROLOGICAL: Intact without focal deficits. PSYCHIATRIC: normal affect. MUSCULOSKELETAL: Normally developed with good muscle tone. Medical Decision & Procedures Medications Administered Medications (Trade) Dose Ordered Sig/Harrison Route Start Time Stop Time Status Last Admin Dose Admin Hydromorphone HCl (Dilaudid Inj) 1 mg NOW STAT IV 02/24/17 16:58 02/24/17 17:01 DC 02/24/17 17:21 1 MG Prochlorperazine Edisylate (Compazine Inj) 10 mg NOW STAT IV 02/24/17 16:58 02/24/17 17:01 DC 02/24/17 17:22 10 MG Ketorolac Tromethamine (Toradol Inj) 30 mg NOW STAT IV 02/24/17 16:58 02/24/17 17:01 DC 02/24/17 17:22 30 MG Diphenhydramine HCl (Benadryl Inj) 25 mg NOW STAT IV 02/24/17 16:58 02/24/17 17:01 DC 02/24/17 17:21 25 MG Sodium Chloride 500 ml @ 999 mls/hr Q31M STAT IV 02/24/17 16:58 02/24/17 17:28 DC 02/24/17 17:23 999 MLS/HR Cyclobenzaprine HCl (Flexeril Tab) 5 mg ONE ONCE PO 02/24/17 17:15 02/24/17 17:16 DC 02/24/17 17:21 5 MG ED Course 1655: Previous medical records were reviewed. The patient was evaluated in room C11. A complete history and physical examination was performed. 1658: Sodium Chloride 500 ml @ 999 mls/hr IV, Benadryl Inj 25mg IV, Toradol Inj 30mg IV, Compazine Inj 10mg IV, Dilaudid Inj 1mg IV 1715: Flexeril Tab 5mg PO 1745: On reevaluation, the patient is feeling better. I discussed the results and findings with the patient. She verbalized agreement of the treatment plan. She was discharged home. Medical Decision Differential includes: Acute intracranial bleed, trauma, meningitis, encephalitis, increased intracranial pressure, mass or mass effect, facial or dental infection, temporal arteritis, CVA, TIA, acute hypertensive emergency, sinusitis, carbon monoxide exposure. This is a 52-year-old female who presents to the ED with a chief complaint of migraine headache. The patient states that she has had it throughout the day today. She was referred here by her PCP. It encompasses the entire head and the is per she has light sensitivity as well as nausea. The patient has had similar headaches in the past. She was treated here with IV Toradol, IV Compazine, IV Dilaudid, IV Benadryl and IV fluids. She was also given oral Flexeril for some spasm in the right trapezius muscle. She was feeling better was felt to be stable for discharge. Medication Reconcilliation Current Medication List: was personally reviewed by me Blood Pressure Screening Patient's blood pressure: Elevated blood pressure Blood pressure disposition: Elevated BP felt to be situational Impression Primary Impression: Migraine Scribe Attestation The scribe's documentation has been prepared under my direction and personally reviewed by me in its entirety. I confirm that the note above accurately reflects all work, treatment, procedures, and medical decision making performed by me. Departure Information Dispostion Home / Self-Care Referrals Madi Jaimes D.O. (PCP) Forms HOME CARE DOCUMENTATION FORM, IMPORTANT VISIT INFORMATION Patient Instructions My [facility] Additional Instructions Follow-up with your doctor for further care and evaluation if symptoms persist. Return to the emergency department for worsening or new symptoms or any concerns. You have been examined and treated today on an emergency basis only. This is not a substitute for, or an effort to provide, complete comprehensive medical care. It is impossible to recognize and treat all injuries or illnesses in a single emergency department visit. It is therefore important that you follow up closely with your doctor. Call as soon as possible for an appointment.
[2017-02-24 18:18] VITALS: BP 164/90; PULSE 71; O2SAT 99
[2017-02-24] MEDS ORDERED: LSN40 PO (20:06)
[2017-02-24] MEDS ORDERED: GABA-113 PO (20:06)
[2017-02-24] MEDS ORDERED: ATV/1 PO (20:06)
[2017-02-24] MEDS ORDERED: INSDGIPEN SC (22:58)
== END 2017-02-24 18:19 | disposition home or self-care (01) ==
LOC: C.EDB 16:48 → C.EDC 18:19
DX: G43.909 Migraine, unspecified, not intractable, without status migrainosus (principal); I10 Essential (primary) hypertension; M54.5 Low back pain; G89.29 Other chronic pain; E11.43 Type 2 diabetes mellitus with diabetic autonomic (poly)neuropathy; E78.5 Hyperlipidemia, unspecified; F32.9 Major depressive disorder, single episode, unspecified; G35 Multiple sclerosis; E04.1 Nontoxic single thyroid nodule; Z82.5 Family history of asthma and other chronic lower respiratory diseases; Z83.3 Family history of diabetes mellitus; Z82.49 Family history of ischemic heart disease and other diseases of the circulatory system; Z87.891 Personal history of nicotine dependence; Z79.4 Long term (current) use of insulin; Z79.899 Other long term (current) drug therapy

== ENCOUNTER → 2017-03-27 | Outpatient (CLI) | payer OTHER ==
[~2017-03-27] MED LIST changes: +AMT25 PO; +ATV/1 PO; +GABA-113 PO; +HYDR25TA5 PO; +INSDGIPEN SC; +LPT/20 PO; +LSN40 PO; +MTR/600 PO; +NRN600 PO
--- NOTE | 2017-03-27 13:14 | DIAGNOSTIC IMAGING REPORT ---
THYROID ULTRASONOGRAPHY CLINICAL HISTORY: THYROID NODULE COMPARISON STUDY: 12/20/2010 FINDINGS: The right of the thyroid measures 46 x 20 x 24 mm. The left lobe of thyroid measures 53 x 28 x 24 mm. Both lobes are inhomogeneous in echotexture. There are multiple bilateral thyroid nodules. On the right there is a circumscribed mixed attenuation solid nodule measuring 11 x 10 x 9 mm. Within the midpole the right lobe posteriorly there is a circumscribed mixed attenuation hypoechoic nodule containing areas of calcification measuring 22 x 13 x 13 mm. These nodules remain similar in size to 2011 study. On the left, there is a dominant 35 x 23 x 17 mm mid pole nodule. This nodule also remains similar in size. There is a dominant isthmus nodule measuring 24 x 18 x 21 mm. This nodule has demonstrated slight increased growth as it previously measured 19 x 9 x 16 mm. IMPRESSION: Multinodular thyroid goiter. Most of the nodules remain similar in size with the exception of a 24 mm isthmus nodule which has demonstrated slight interval growth when compared the prior December 2010 study. (Previously measured 19 mm) Electronically signed by: Ismael Nice M.D. 03/27/2017 1:13 PM Dictated Date/Time: 03/27/2017 1:08 PM
== END | disposition home or self-care (01) ==
LOC: C.ULTR 12:00
PROVIDERS: ATTEND Internal Medicine Endocrinology, Diabetes & Metabolism
DX: E05.20 Thyrotoxicosis with toxic multinodular goiter without thyrotoxic crisis or storm (principal)

== ENCOUNTER → 2017-03-31 | Outpatient (CLI) | payer OTHER ==
[2017-03-31 10:16] LABS: CHOLESTEROL/HDL RATIO 3.1; THYROID STIMULATING HORMONE 0.718 uIu/ml (0.300-4.500)
[2017-03-31 10:20] LABS: ESTIMATED AVERAGE GLUCOSE 246 mg/dl; HA1C FLAG Normal (Normal)
== END | disposition home or self-care (01) ==
LOC: C.LAB 06:50
PROVIDERS: ATTEND Internal Medicine Endocrinology, Diabetes & Metabolism
DX: E04.1 Nontoxic single thyroid nodule (principal); E55.9 Vitamin D deficiency, unspecified; E53.8 Deficiency of other specified B group vitamins; E11.9 Type 2 diabetes mellitus without complications

== ENCOUNTER → 2017-04-10 | Outpatient (CLI) | payer OTHER ==
--- NOTE | 2017-04-10 10:25 | DIAGNOSTIC IMAGING REPORT ---
(BARIUM SWALLOW) ESOPHAGUS CLINICAL HISTORY: 52 years-old Female with R47.02 Acquired [id number]. Dysphasia with multiple sclerosis and thyroid goiter TECHNIQUE: Barium contrast and effervescent crystals were administered to the patient under fluoroscopic examination. Multiple images were obtained and submitted for review. FLUOROSCOPY TIME: 1.3 minutes COMPARISON: Cervical spine MR 01/09/2017. FINDINGS: During deglutition, contrast material flowed freely through the cervical esophagus. No filling defect or mucosal abnormality is identified. No abnormal stricturing or mass effect is seen. The mid to distal esophagus is well coated and distended. No abnormal stricturing or mucosal abnormality is identified. No significant reflux or hiatal hernia was demonstrated during the exam. The GE junction is normal in appearance. Mild esophageal dysmotility noted with some tertiary contractions of the mid to distal esophagus. Impression: Mild esophageal dysmotility with some tertiary contractions of the mid to distal esophagus noted with otherwise unremarkable esophagram The above report was generated using voice recognition software. It may contain grammatical, syntax or spelling errors. Electronically signed by: Pavel Aly M.D. 04/10/2017 10:24 AM Dictated Date/Time: 04/10/2017 10:23 AM
--- NOTE | 2017-04-10 11:11 | DIAGNOSTIC IMAGING REPORT ---
Ultrasound-guided FINE-NEEDLE ASPIRATION BIOPSY OF THYROID X2 CLINICAL HISTORY: Toxic multinodular goiter COMPARISON STUDY: 03/27/2017 FINDINGS: A timeout was performed. The risks the procedure were explained the patient informed consent was obtained. The patient was prepped in sterile fashion. The skin was anesthetized 1% lidocaine. Under ultrasound guidance, 2 fine needle aspiration biopsy samples were obtained with 25-gauge needle from the slowly enlarging isthmus nodule. Under ultrasound guidance, 2 fine-needle aspiration biopsy samples were obtained with a 25-gauge needle from the dominant 22 mm mid pole right lobe nodule. Initial pathologic review indicates satisfactory material for diagnosis. There were no immediate complications. IMPRESSION: Successful ultrasound-guided fine-needle aspiration biopsy of an isthmus nodule and right lobe thyroid nodule. Electronically signed by: Ismael Nice M.D. 04/10/2017 11:10 AM Dictated Date/Time: 04/10/2017 11:08 AM
== END | disposition home or self-care (01) ==
LOC: C.RAD 09:15
PROVIDERS: ATTEND Internal Medicine Endocrinology, Diabetes & Metabolism
DX: E05.20 Thyrotoxicosis with toxic multinodular goiter without thyrotoxic crisis or storm (principal); R47.02 Dysphasia

== ENCOUNTER → 2017-06-22 | Outpatient (CLI) | payer OTHER ==
[~2017-06-22] MED LIST changes: +GADAVIST IV PRN; -LPT/20 PO; +LPT20 PO
--- NOTE | 2017-06-22 14:19 | DIAGNOSTIC IMAGING REPORT ---
MRI OF THE BRAIN COMBO CLINICAL HISTORY: Multiple sclerosis. Worsening symptoms. COMPARISON STUDY: MRI of the brain dated 01/09/2017. TECHNIQUE: MRI of the brain was performed utilizing various T1 and T2-weighted sequences in the axial, sagittal, and coronal planes. Contrast-enhanced sequences were acquired following the administration of 8.5 cc of Gadavist. FINDINGS: Brain parenchyma: There are foci of subcortical and periventricular T2 signal abnormality consistent with the reported history of multiple sclerosis. These are similar in distribution to the 01/09/2017 examination. No abnormal enhancement is suggested within these lesions to indicate active demyelination. There is no hemorrhage or mass effect. There is no restricted diffusion to suggest acute ischemia. No enhancing mass lesion is identified on the postcontrast images. Girard-white matter differentiation is preserved. No extra-axial fluid collection is seen. The cerebellar tonsils are normal in configuration. Ventricles, sulci, and cisterns: Normal in configuration. Pituitary and sella: Unremarkable. Intracranial vasculature: Normal flow voids are maintained at the skull base. Orbits: The bony orbits are grossly intact. Orbital contents are normal in appearance. Sinuses and mastoids: Clear. Calvarium: Unremarkable. Cervical cord: Partially visualized cervical spinal cord is normal in morphology and signal intensity. IMPRESSION: 1. No acute intracranial abnormality. 2. There are similar-appearing T2 hyperintense lesions within the subcortical and periventricular white matter as compared to 01/09/2017. These are consistent with the reported clinical history of multiple sclerosis. No abnormal enhancement is identified to suggest active demyelination. Electronically signed by: Trevon Chaudhary M.D. 06/22/2017 2:18 PM Dictated Date/Time: 06/22/2017 2:08 PM
== END | disposition home or self-care (01) ==
LOC: C.MRI 13:00
PROVIDERS: ATTEND Internal Medicine
DX: G35 Multiple sclerosis (principal)

== ENCOUNTER 2017-06-25 15:11 | Emergency (ER) | payer OTHER ==
[~2017-06-25] VITALS: Ht 167.6 cm; Wt 87.1 kg
[~2017-06-25 15:11] MED LIST changes: -GADAVIST IV PRN
[2017-06-25 15:15] VITALS: TEMP 36.7; Ht 167.6 cm; Wt 87.1 kg
[2017-06-25] MEDS ORDERED: LDDP5 TOP (15:44)
[2017-06-25] MEDS ORDERED: [UNRECOGNIZED DRUG - OTHER] INJ (15:45)
[2017-06-25] MEDS ORDERED: SODIUM CHLORIDE 0.9% 1000ML 1,000 ML IV STA (15:56)
[2017-06-25] MEDS ORDERED: DiphenhydrAMINE INJ 25 MG in SYRINGE 0 ML IV STA (15:56)
[2017-06-25] MEDS ORDERED: METOCLOPRAMIDE HCL INJ 5 MG/ML 2 ML VIAL IV STA (15:56)
--- NOTE | 2017-06-25 16:25 | EMERGENCY ROOM VISIT NOTE ---
History Report prepared by Milana: Jean-Pierre Ferro Under the Supervision of: Dr. Christopher Watkins M.D. First contact with patient: 15:45 Chief Complaint: HEADACHE Stated Complaint: MS MIGRAINE History of Present Illness The patient is a 52 year old female who presents to the Emergency Room with complaints of a constant headache for the past three days. She currently rates her discomfort as a 10/10 in severity. The patient state that she has a history of migraines, and she states that she is currently having an MS flare up. The patient states that she has been taking Motrin for the pain, and she had compazine for her vomiting. The patient is denying any traumas or fevers. No trauma. The patient states that she has come to the ED before for her migraines and she usually receives fluids, Benadryl, and "something related to morphine that doesn't start with an M". Source of History: patient Onset: three days ago Position: head Symptom Intensity: 10/10 Quality: ache Timing: constant Associated Symptoms: + vomiting Review of Systems See HPI for pertinent positives and negatives. A total of ten systems were reviewed and were otherwise negative. Past Medical & Surgical Medical Problems: (1) Benign hypertension (2) Chronic low back pain (3) Diabetes mellitus type 2 (4) Diabetic neuropathy (5) Drug overdose - suicide (6) Dyslipidemia (7) Essential hypertension (8) Intervertebral disc disease (9) Major depressive disorder (10) Migraine (11) Multiple sclerosis (12) Non-toxic uninodular goiter (13) Postlaminectomy syndrome of lumbar region (14) Syncope (15) Vertigo (16) Weakness of limb Surgical Problems: (1) H/O arthroscopic knee surgery (2) History of back surgery Family History Asthma BROTHER Diabetes mellitus FH: CAD (coronary artery disease) MOTHER FH: CHF (congestive heart failure) MOTHER FH: Crohn's disease SISTER Hypertension Social History Smoking Status: Current Every Day Smoker Alcohol Use: none Drug Use: none Marital Status: Housing Status: lives with family Occupation Status: disabled Current/Historical Medications Scheduled Amitriptyline HCl (Amitriptyline HCl), 25 MG PO HS Atorvastatin (Lipitor), 20 MG PO DAILY Gabapentin (Neurontin), 300 MG PO TID Gabapentin (Gabapentin), 600 MG PO TID Hydrochlorothiazide (Hydrochlorothiazide), 25 MG PO DAILY Insulin Glargine (Lantus Solostar), 30 UNITS SC BID Lisinopril (Lisinopril), 40 MG PO DAILY [Mart], 1 DOSE INJ MWF Scheduled PRN Ibuprofen (Ibuprofen), 600 MG PO BID PRN for Pain Lidocaine (Lidocaine), 1 PATCH TOP ONAMOFFPM PRN for Pain Lorazepam (Ativan), 1 MG PO Q6H PRN for Anxiety Tramadol (Ultram), 50 MG PO Q6H PRN for Pain Allergies Coded Allergies: Cephalexin (Verified Allergy, Intermediate, HIVES; NO SOB OR ANAPHYLACTIC SYMPTOMS, 06/25/17) Nabumetone (Verified Allergy, Mild, HIVES, 06/25/17) Bupropion (Verified Allergy, Unknown, RASH FINGERS TINGLY AND NUMB, ) Prednisone (Verified Allergy, Unknown, elevated BP RASH GI SHUT DOWN, ) turns into syco women, crying, hearing things NSAIDs (Verified Adverse Reaction, Mild, GI UPSET,STOMACH CRAMPS,RASH, ELEVATED BP, 06/25/17) CAN TAKE ADVIL SOMETIMES Physical Exam Vital Signs Date Time Temp Pulse Resp B/P (MAP) Pulse Ox O2 Delivery O2 Flow Rate FiO2 06/25/17 16:48 82 18 162/80 95 Room Air 06/25/17 16:32 78 18 171/88 98 Room Air 06/25/17 15:15 36.7 73 16 155/77 99 Room Air Physical Exam GENERAL: Awake, alert, well-appearing, in no distress. Patient was watching TV in her room asking what the score of the football game was. HENT: Normocephalic, Atraumatic. no hemotympanum bilaterally, neal sign negative bilaterally. Oropharynx unremarkable. EYES: Normal conjunctiva. Sclera non-icteric. PERRL bilaterally. EOMI bilaterally. No photophobia. NECK: Supple. No nuchal rigidity. FROM. No JVD. No C-spine tenderness. Kernig and Brudzinski negative. RESPIRATORY: Clear to auscultation. No wheezes, rhonchi or rales bilaterally. CARDIAC: Regular rate, normal rhythm. Extremities warm and well perfused. Equal palpable radial pulses to the bilateral upper extremities. Equal palpable DP pulses to the bilateral lower extremities. ABDOMEN: Soft, non-distended. No tenderness to palpation. No rebound or guarding. No masses. Rovsing Negative. RECTAL: Deferred. MUSCULOSKELETAL: Chest examination reveals no tenderness. The back is symmetrical on inspection without obvious abnormality. There is no CVA tenderness to palpation. No joint edema. LOWER EXTREMITIES: Calves are equal size bilaterally and non-tender. No edema. No discoloration. NEURO: Normal sensorium. No sensory or motor deficits noted. No pronator drift. No facial droop. No dysarthria. SKIN: No rash or jaundice noted. Medical Decision & Procedures Medications Administered Medications (Trade) Dose Ordered Sig/Harrison Route Start Time Stop Time Status Last Admin Dose Admin Sodium Chloride 1,000 ml @ 999 mls/hr Q1H1M STAT IV 06/25/17 15:56 06/25/17 16:56 DC 06/25/17 16:08 999 MLS/HR Metoclopramide HCl (Reglan Inj) 10 mg NOW STAT IV 06/25/17 15:56 06/25/17 15:58 DC 06/25/17 16:08 10 MG ED Course 1545: The patient was evaluated in room C2. A complete history and physical exam was performed. I explained that opiates are not recommended for migraines. I explained that I am going to try to reduce her migraine pain, and she was in agreement. 1556: Diphenhydramine HCl 25mg 0..5ml @ 1mls/min IV, Reglan 10mg IV, Sodium Chloride 1000 ml @ 999 mls/hr IV 1558: EMR was reviewed, and the patient had an MRI of the brain done on 06/22/17 , and it showed no acute intracranial abnormality and there are similar- appearing T2 hyperintense lesions within the subcortical and periventricular white matter as compared to 01/09/2017. These are consistent with the reported clinical history of multiple sclerosis. No abnormal enhancement is identified to suggest active demyelination. 1646: Vital signs stable. On repeat exam the patient is neurologically intact and watching the game on the television. Patient states that wishes to be discharged home s/p Reglan, Benadryl and IV fluids. She states that they only minimally helped her. I offered to give the patient a different headache cocktail of medications that does not include opiates per the ACEP guidelines, however the patient wants to go home if she is not going to be treated with proper analgesia with narcotics. Medical Decision EMR was reviewed, and the patient had an MRI of the brain done on 06/22/17, and it showed no acute intracranial abnormality and there are similar-appearing T2 hyperintense lesions within the subcortical and periventricular white matter as compared to 01/09/2017. These are consistent with the reported clinical history of multiple sclerosis. No abnormal enhancement is identified to suggest active demyelination. On repeat exam the patient is neurologically intact and watching the game on the television. Patient states that wishes to be discharged home s/ p Reglan, Benadryl and IV fluids. She states that they only minimally helped her. I offered to give the patient a different headache cocktail of medications that does not include opiates per the ACEP guidelines, however the patient wants to go home if she is not going to be treated with proper analgesia with narcotics. Medication Reconcilliation Current Medication List: was personally reviewed by me Blood Pressure Screening Patient's blood pressure: Elevated blood pressure Blood pressure disposition: Elevated BP felt to be situational Impression Primary Impression: Migraine Scribe Attestation The scribe's documentation has been prepared under my direction and personally reviewed by me in its entirety. I confirm that the note above accurately reflects all work, treatment, procedures, and medical decision making performed by me. The chart was completed utilizing [employer] voice recognition software. Grammatical errors, random word insertions, pronoun errors, and incomplete sentences are an occasional consequence of this system due to software limitations, ambient noise, and hardware issues. Any formal questions or concerns about the content, text, or information contained within the body of this dictation should be directly addressed to the physician for clarification. Departure Information Dispostion Home / Self-Care Referrals Madi Jaimes D.O. (PCP) Forms HOME CARE DOCUMENTATION FORM, IMPORTANT VISIT INFORMATION Patient Instructions Headache Migraine Triggers Prevent Problem Qualifiers Primary Impression: Migraine Migraine type: unspecified Status migrainosus presence: without status migrainosus Intractability: not intractable Qualified Codes: G43.909 - Migraine, unspecified, not intractable, without status migrainosus
[2017-06-25 16:48] VITALS: BP 162/80; PULSE 82; O2SAT 95
[2017-06-25] MEDS ORDERED: DiphenhydrAMINE HCL 50 MG/ML VIAL IV STA (18:11)
== END 2017-06-25 17:10 | disposition home or self-care (01) ==
LOC: C.EDB 15:12 → C.EDC 17:10
DX: G43.909 Migraine, unspecified, not intractable, without status migrainosus (principal); I10 Essential (primary) hypertension; E11.40 Type 2 diabetes mellitus with diabetic neuropathy, unspecified; E78.5 Hyperlipidemia, unspecified; G35 Multiple sclerosis; E04.1 Nontoxic single thyroid nodule; Z83.6 Family history of other diseases of the respiratory system; Z83.3 Family history of diabetes mellitus; Z82.49 Family history of ischemic heart disease and other diseases of the circulatory system; F17.210 Nicotine dependence, cigarettes, uncomplicated; Z79.4 Long term (current) use of insulin; Z79.899 Other long term (current) drug therapy

== ENCOUNTER → 2017-06-27 | Outpatient (CLI) | payer OTHER ==
[~2017-06-27] MED LIST changes: +GADAVIST IV PRN; +LDDP5 TOP; -NF656 TOP; +[UNRECOGNIZED DRUG - OTHER] INJ
--- NOTE | 2017-06-27 15:23 | DIAGNOSTIC IMAGING REPORT ---
CERVICAL SPINE COMBO HISTORY: 52 years-old Female G35 increase symptoms related to patient history of multiple sclerosis. COMPARISON: Cervical spine MR 01/09/2017 TECHNIQUE: Multiplanar multisequence MRI of the cervical spine was obtained both with and without the use of 8.5 mL Gadavist FINDINGS: Large field view disciplinary hearing officer localizer images demonstrate no gross abnormality. Extensive foci of T2 prolongation again seen throughout the cervical spinal cord extending from C1-C6 with additional smaller ill-defined foci seen to level of T3 and T4-T5. Lesions within the cervical spine have decreased in size and signal intensity from comparison study dated 01/09/2017, notably the foci within the mid cervical spine at the level of C3-C4 and posterior to the C1-C2 level. No abnormal enhancement of any of the lesions identified to suggest active demyelination. There is an enhancing ovoid circumscribed T2 hyperintense and T1 hypointense 9 x 6 x 6 mm lesion within the submandibular tissues nicely seen on image 8 series 4 and also on image 8 series 7. No focal abnormality of the posterior fossa or paraspinal tissues. Thyroid appears somewhat heterogeneous. C2-C3: Mild intervertebral disc space narrowing with uncovertebral spurring. No significant central canal or foraminal narrowing. C3-C4: Mild intervertebral disc space narrowing with uncovertebral spurring and right lateral recess/right foraminal disc osteophyte complex which results in mild to moderate right foraminal narrowing. There is mild left foraminal stenosis without significant central canal narrowing. Mild facet arthrosis. C4-C5: Mild intervertebral disc space narrowing with broad-based posterior disc bulge and uncovertebral spurring, right greater than left. Mild facet arthrosis. Moderate right and mild left foraminal stenosis without significant central canal narrowing. C5-C6: Circumferential annular disc bulge with endplate spurring and mild intervertebral disc space narrowing with facet arthrosis. Mild central canal with moderate right and mild to moderate left foraminal stenosis. C6-C7: Mild intervertebral disc space narrowing with broad-based posterior disc bulge and uncovertebral spurring. No significant central canal or foraminal narrowing. C7-T1: Normal. IMPRESSION: 1. Mild improvement of the multifocal areas of increased T2 signal throughout the cervical and imaged thoracic spinal cord as above without new or progressive lesions identified. These findings are compatible with demyelinating plaques associated with history of multiple sclerosis. No abnormal enhancement to suggest active demyelination. 2. Multilevel degenerative changes of the cervical spine as above with mild central canal and right lateral recess stenosis at C5-C6. 3. 9 mm enhancing lesion of the submandibular tissues as above suggests a level I lymph node. This could be further evaluated with dedicated ultrasound. The above report was generated using voice recognition software. It may contain grammatical, syntax or spelling errors. Electronically signed by: Pavel Aly M.D. 06/27/2017 3:22 PM Dictated Date/Time: 06/27/2017 11:57 AM
== END | disposition home or self-care (01) ==
LOC: C.MRI 10:24
PROVIDERS: ATTEND Internal Medicine
DX: G35 Multiple sclerosis (principal); M47.812 Spondylosis without myelopathy or radiculopathy, cervical region; K11.8 Other diseases of salivary glands

== ENCOUNTER → 2017-08-30 | Outpatient (CLI) | payer OTHER ==
[~2017-08-30] MED LIST changes: -GADAVIST IV PRN
--- NOTE | 2017-08-30 12:15 | DIAGNOSTIC IMAGING REPORT ---
MRI LEFT KNEE NO CONTRAST CLINICAL HISTORY: Lateral knee pain. COMPARISON STUDY: 04/04/2016 FINDINGS: Imaging was performed in the axial, sagittal, and coronal planes. A large bone infarct is again visualized within the metadiaphyseal portion of the proximal tibia. There are no areas of marrow edema to indicate occult fracture or bone bruise. Also evident are stable tiny bone infarcts within the lateral femoral condyle. The medial and lateral collateral ligaments appear intact. The anterior and posterior cruciate ligaments appear intact. The quadriceps and patellar tendons appear intact. The patellar retinacular structures appear intact. There are mixed linear and globular signal changes within the posterior horn the medial meniscus. These do not definitively reach a meniscal surface and likely represent mucoid degeneration. The posterior horn of the lateral meniscus is absent. This presumably is secondary to prior surgery. No tears of the anterior horn are visualized. There is a small lateral osteophyte arising from the lateral femoral condyle. There is persistent chondrosis involving the lateral tibial plateau IMPRESSION: 1. Stable large proximal tibial bone infarct 2. No evidence of cruciate or collateral ligament disruption 3. Degenerative changes involving the posterior horn the medial meniscus but no definite tear. 4. Absent posterior horn the lateral meniscus, likely secondary to prior surgery 5. Persistent chondrosis involving the lateral tibial plateau Electronically signed by: Ismael Nice M.D. 08/30/2017 12:14 PM Dictated Date/Time: 08/30/2017 12:07 PM
== END | disposition home or self-care (01) ==
LOC: C.MRI 10:57
PROVIDERS: ATTEND Family Medicine
DX: M23.92 Unspecified internal derangement of left knee (principal); M25.462 Effusion, left knee; M25.562 Pain in left knee; W19.XXXA Unspecified fall, initial encounter

== ENCOUNTER → 2017-09-06 | Outpatient (CLI) | payer OTHER | END | disposition home or self-care (01) | LOC: C.RDSM 09-06 13:51 | PROVIDERS: ATTEND Physical Medicine & Rehabilitation Sports Medicine | DX: M25.562 Pain in left knee (principal) ==